=== PATIENT | female | born 1955 | race Caucasian/White ===

== ENCOUNTER 2021-09-04 04:54 | Inpatient (IN) | payer MEDICARE, SELFPAY ==
[2021-09-04] VITALS (59 sets, daily range): BP systolic 80–114; BP diastolic 50–84; PULSE 71–118; RESP 14–41; TEMP 36.3–37.2; O2SAT 50–99; BMI 18.9
--- NOTE | 2021-09-04 05:11 | XRR_ITS ---
PROCEDURE INFORMATION: Exam: XR Chest Exam date and time: 09/04/2021 5:11 AM Age: 65 years old Clinical indication: Shortness of breath; Additional info: SOB TECHNIQUE: Imaging protocol: XR of the chest. Views: 1 view. COMPARISON: CR Cervical Spine AP/Lat* [id number] 09/05/2019 5:17 PM FINDINGS: Lungs: There is prominent left upper lobe pulmonary consolidation consistent with a pneumonia. The right lung is clear. Pleural spaces: Unremarkable. No pleural effusion. No pneumothorax. Heart/Mediastinum: Unremarkable. No cardiomegaly. Bones/joints: Unremarkable. XR/XR chest 1V portable [id number] IMPRESSION: Left upper lobe pneumonia. Radiation Dose CTDIVOL = (mGy): DLP = (mGy-cm)
--- NOTE | 2021-09-04 05:12 | ECG_ITS ---
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 Measurements Intervals [place] Rate: 109 P: 95 FL: 151 QRS: 77 QRSD: 77 T: 87 QT: 330 QTc: 446 Interpretive Statements SINUS TACHYCARDIA POSSIBLE RIGHT ATRIAL ENLARGEMENT [0.25mV P-WAVE] POSSIBLE LEFT ATRIAL ENLARGEMENT [-0.1mV P-WAVE IN V1/V2] NONSPECIFIC ST & T-WAVE ABNORMALITY ABNORMAL RHYTHM ECG No previous ECG available for comparison Electronically Signed On 09-04-2021 21:55:19 DIRECTOR OF MEDICAL SERVICES by Edgar Delgado M.D. [id number]
[2021-09-04 05:26] LABS: Hematocrit 40.7 % (37.0-47.0); Hemoglobin 13.5 g/dL (11.5-15.3); Mean Corpuscular HGB Conc 33.2 g/dL (30.0-36.0); Mean Corpuscular Hemoglobin 31.7 pg (28.0-34.0); Mean Corpuscular Volume 95.5 fl (81-99); Mean Platelet Volume 12.1 fL (7.4-10.4); Platelet Count 169 10^3/cmm (130-400); Red Blood Count 4.26 10^6/uL (4.1-5.3); White Blood Count 5.4 10^3/uL (4.0-10.0)
--- NOTE | 2021-09-04 05:39 | ED_ITS ---
HPI - SOB/Dyspnea General: Chief Complaint: Shortness of Breath/Dyspnea Stated Complaint: SOB/ CHEST PAIN Time Seen by Provider: 09/04/21 04:58 History of Present Illness: MD elicited complaint: shortness of breath, cough and pain with inspiration Pertinent past history: COPD Onset (ago): day(s) Timing: intermittent and progressively worsening Severity: moderate Exacerbating factors: lying flat, exertion, coughing, inspiration and deep breaths Relieving factors: oxygen, bronchodilators and medication Associated symptoms: Reports cough, dizziness, syncope and vomiting; Deny fever(s), nausea or orthopnea Treatment prior to arrival: oxygen and nitroglycerin Review of Systems Const: Denies: fever(s) Card: Reports: syncope; Denies: orthopnea GI: Reports: vomiting; Denies: nausea Neuro: Reports: dizziness Physical Exam Const: GENERAL APPEARANCE: cooperative, in distress, ill appearing, frail appearing and appears older than stated age NUTRITIONAL APPEARANCE: cachectic ORIENTATION/CONSCIOUSNESS: Yes awake, Yes oriented to person and Yes oriented to place HENMT: COMMON NORMALS: normocephalic and Normal external nose present HEAD & SCALP: normocephalic FACE & SINUS: normal facial exam NOSE: Normal external nose present and Normal nares present Chest: Breast/axilla inspection: Yes no chest deformity, asymmetry, normal contours, no nodules, masses, tenderness Resp: EFFORT & INSPECTION: Yes tachypneic, Yes respiratory distress and Yes labored AUSCULTATION: rhonchi GI: COMMON NORMALS: Normal to inspection, nondistended, normoactive bowel sounds present and Soft to palpation PALPATION: Yes Soft to palpation Neuro: SENSORIUM/ORIENTATION: Yes oriented to person and Yes oriented to place Course Vital Signs: Vital signs: Vital Signs Temperature 98 F 09/04/21 04:55 Pulse Rate 112 H 09/04/21 05:49 Respiratory Rate 30 H 09/04/21 05:49 Blood Pressure 109/76 09/04/21 05:49 Pulse Oximetry 96 09/04/21 05:49 MDM - SOB/Dyspnea MDM Narrative: Medical decision making narrative: Dense left upper lobe pneumonia on chest x-ray. White blood cell count is only 5.4. Bicarbonate level 19. Her lactic acid is significantly elevated at 4.9. On arrival, she was found to be hypoxic despite nasal cannula oxygenation, and was placed on BiPAP. She is breathing much better. Initial blood gas shows a pH of 7.27, PCO2 49, PO2 of 240. This was after about 5 minutes to 10 minutes of BiPAP oxygenation. She was hypotensive on arrival, and tachycardic. Blood pressure has improved with fluid bolus. She received a sepsis bolus. D-dimer is significantly elevated. CTA of the chest has been ordered. Rocephin and Zithromax have been given post blood cultures. She will go to the ICU following CTA. Lab Data: Labs: Lab Results 09/04/21 09/04/21 09/04/21 05:16 05:16 05:16 WBC 5.4 10^3/uL 10^3/ uL (4.0-10.0) RBC 4.26 10^6/uL 10^6 /uL (4.1-5.3) Hgb 13.5 g/dL g/dL (11.5-15.3) Hct 40.7 % % (37.0-47.0) MCV 95.5 fl fl (81-99) MCH 31.7 pg pg (28.0-34.0) MCHC 33.2 g/dL g/dL (30.0-36.0) RDW 12.0 % L % (12.1-15.1) Plt Count 169 10^3/cmm 10^3 /cmm (130-400) MPV 12.1 fL H fL (7.4-10.4) Lymph % (Auto) Not Reportable [place] % (Auto) Not Reportable Lymph # (Auto) Not Reportable [place] # (Auto) Not Reportable Total Counted 100 (0-100) Atypical Lymphs % 0.0 % % (0-5) Absolute Neutrophi ls 3.7 10^3/cmm 10^3 /cmm (1.4-6.5) Segmented Neutroph ils 31 % % Abs Segm Neuts (Ma n) 1.7 10/cmm 10/cmm (1.6-7.1) Band Neutrophils 37.0 % % Abs Band Neuts (Ma n) 2.0 10^3/cmm H 10 ^3/cmm (0.0-1.2) Absolute Lymphocyt es 1.0 10^3/cmm L 10 ^3/cmm (1.2-3.4) Lymphocytes (Manua l) 19 % % Monocytes (Manual) 9.0 % % Absolute Monocytes 0.5 10^3/cmm 10^3 /cmm (0.1-0.6) Eosinophils (Manua l) 0 % % Absolute Eosinophi ls 0.0 10^3/cmm 10^3 /cmm (0.0-0.7) Basophils (Manual) 0.0 % % Absolute Basophils 0.0 10^3/cmm 10^3 /cmm (0.0-0.2) Metamyelocytes 4.0 % % Platelet Estimate Normal (Normal) PT 16.00 SECONDS H S ECONDS (12.1-14.9) INR 1.24 H (0.8-1.2) D-Dimer 1.83 ug/mIFEU H u g/mIFEU (0-0.59) Specimen Type Sample Site ABG pH ABG pCO2 ABG pO2 ABG HCO3 ABG Base Excess Solomon Test Hematocrit Hgb O2 Saturation Carboxyhemoglobin Methemoglobin Total Hemoglobin O2 Delivery Device FiO2 Director Of Strategic Sales ID Sodium 133 mmol/L L mmol /L (136-145) Potassium 3.8 mmol/L mmol/L (3.5-5.1) Chloride 98 mmol/L mmol/L (98-107) Carbon Dioxide 19 mmol/L L mmol/ L (22-29) Anion Gap 19.8 H (5-19) BUN 23 mg/dL mg/dL (8-23) Creatinine 1.0 mg/dL H mg/dL (0.5-0.9) GFR Calculation 56.0 mL/min L mL/ min (90-130) Glucose 111 mg/dL mg/dL (65-115) Calculated Osmolal ity 280 mOsm/kg L mOs m/kg (285-295) Lactic Acid Calcium 8.5 mg/dL mg/dL (8.5-10.5) Total Bilirubin 0.8 mg/dL mg/dL (0.15-1.2) AST 19 U/L U/L (0-32) ALT 12 U/L U/L (0-33) Alkaline Phosphata se 73 IU/L IU/L (35-105) Troponin T Baselin e C-Reactive Protein 173.2 mg/L H mg/L (0.0-4.9) NT-Pro-B Natriuret Pep 4440 pg/mL H pg/m L (0-125) Total Protein 5.1 g/dL L g/dL (6.6-8.7) Albumin 3.1 g/dL L g/dL (3.5-5.2) Globulin 2.0 g/dL g/dL (1.3-4.6) Procalcitonin 7.05 ng/mL H ng/m L (0-0.5) Influenza Type A A g Influenza Type B A g SARS-CoV-2 Ag (Rap id) 09/04/21 09/04/21 09/04/21 05:16 05:30 05:30 WBC RBC Hgb Hct MCV MCH MCHC RDW Plt Count MPV Lymph % (Auto) [place] % (Auto) Lymph # (Auto) [place] # (Auto) Total Counted Atypical Lymphs % Absolute Neutrophi ls Segmented Neutroph ils Abs Segm Neuts (Ma n) Band Neutrophils Abs Band Neuts (Ma n) Absolute Lymphocyt es Lymphocytes (Manua l) Monocytes (Manual) Absolute Monocytes Eosinophils (Manua l) Absolute Eosinophi ls Basophils (Manual) Absolute Basophils Metamyelocytes Platelet Estimate PT INR D-Dimer Specimen Type Sample Site ABG pH ABG pCO2 ABG pO2 ABG HCO3 ABG Base Excess Solomon Test Hematocrit Hgb O2 Saturation Carboxyhemoglobin Methemoglobin Total Hemoglobin O2 Delivery Device FiO2 Director Of Strategic Sales ID Sodium Potassium Chloride Carbon Dioxide Anion Gap BUN Creatinine GFR Calculation Glucose Calculated Osmolal ity Lactic Acid 4.9 mmol/L H* mmo l/L (0.5-2.2) Calcium Total Bilirubin AST ALT Alkaline Phosphata se Troponin T Baselin e 10 ng/L ng/L (0-10) C-Reactive Protein NT-Pro-B Natriuret Pep Total Protein Albumin Globulin Procalcitonin Influenza Type A A g Negative (Negative) Influenza Type B A g Negative (Negative) SARS-CoV-2 Ag (Rap id) 09/04/21 09/04/21 05:30 05:39 WBC RBC Hgb Hct MCV MCH MCHC RDW Plt Count MPV Lymph % (Auto) [place] % (Auto) Lymph # (Auto) [place] # (Auto) Total Counted Atypical Lymphs % Absolute Neutrophi ls Segmented Neutroph ils Abs Segm Neuts (Ma n) Band Neutrophils Abs Band Neuts (Ma n) Absolute Lymphocyt es Lymphocytes (Manua l) Monocytes (Manual) Absolute Monocytes Eosinophils (Manua l) Absolute Eosinophi ls Basophils (Manual) Absolute Basophils Metamyelocytes Platelet Estimate PT INR D-Dimer Specimen Type Arterial Sample Site Radial, left ABG pH 7.27 L (7.35-7.45) ABG pCO2 49.2 mmHg H mmHg (35-45) ABG pO2 240.0 mmHg H mmHg (80.0-100.0) ABG HCO3 22.7 mmol/L mmol/ L (22-26) ABG Base Excess -4.5 mmol/L L mmo l/L (-2.0-2.0) Solomon Test Pos Hematocrit 45.0 % % (37-47) Hgb O2 Saturation 97.0 % % (95-100) Carboxyhemoglobin 1.9 %THgb %THgb (0.4-20.1) Methemoglobin 0.9 % % (0.4-1.5) Total Hemoglobin 14.7 g/dL g/dL (12-16) O2 Delivery Device Bipap FiO2 80.0 % % Director Of Strategic Sales ID Tamma Sodium Potassium Chloride Carbon Dioxide Anion Gap BUN Creatinine GFR Calculation Glucose Calculated Osmolal ity Lactic Acid Calcium Total Bilirubin AST ALT Alkaline Phosphata se Troponin T Baselin e C-Reactive Protein NT-Pro-B Natriuret Pep Total Protein Albumin Globulin Procalcitonin Influenza Type A A g Influenza Type B A g SARS-CoV-2 Ag (Rap id) Negative (Negative) Critical Care Time Critical Care Time: Critical Care Time: Yes Total Critical Care Time: 35 Attestation: This case had a high probability of a clinically significant, sudden, or life threatening deterioration of this patient's condition which required my full and direct attention, intervention and personal management. Discharge Plan Discharge Patient Disposition: Admitted As Inpatient Clinical Impression: Community acquired pneumonia Qualifiers: Laterality: left Lung location: upper lobe of lung Qualified Code(s): J18.9 - Pneumonia, unspecified organism Respiratory failure Qualifiers: Chronicity: acute Respiratory failure complication: hypoxia and hypercapnia Qualified Code(s): J96.01 - Acute respiratory failure with hypoxia Condition: Serious Coding Level of Care Code ED Correspondence Coordinator for [facility] Fwd Exam Expanded Problem Focused
[2021-09-04 05:41] LABS: ABG PCO2 49.2 mmHg (35-45); ABG PH Result 7.27 (7.35-7.45); Base Excess ABG -4.5 mmol/L (-2.0-2.0); Blood Gas Allen Test Pos; Blood Gas Sample Site Radial, left; Blood Gas Sample Type Arterial; Carboxyhemoglobin 1.9 %THgb (0.4-20.1); HCO3 ABG 22.7 mmol/L (22-26); Methemoglobin 0.9 % (0.4-1.5); Oxygen Device BIPAP; Total Hemoglobin 14.7 g/dL (12-16)
[2021-09-04 05:43] LABS: INR 1.24 (0.8-1.2)
[2021-09-04] MEDS: sodium chloride 0.9% 1,000 ML 999 ML IV (05:45)
[2021-09-04 05:46] LABS: D Dimer 1.83 ug/mIFEU (0-0.59)
[2021-09-04 05:49] LABS: Troponin(5th) Baseline 10 ng/L (0-10)
[2021-09-04 05:56] LABS: NT Pro B Type Natriuretic Pept 4440 pg/mL (0-125); Procalcitonin 7.05 ng/mL (0-0.5)
[2021-09-04 06:07] LABS: Alanine Aminotransferase 12 U/L (0-33); Albumin Level 3.1 g/dL (3.5-5.2); Alkaline Phosphatase 73 IU/L (35-105); Anion Gap 19.8 (5-19); Aspartate Amino Transferase 19 U/L (0-32); Blood Urea Nitrogen 23 mg/dL (8-23); C Reactive Protein 173.2 mg/L (0.0-4.9); Calcium 8.5 mg/dL (8.5-10.5); Carbon Dioxide 19 mmol/L (22-29); Chloride 98 mmol/L (98-107); Creatinine Clr Calc Pharmacy 40.8146; Glucose 111 mg/dL (65-115); Osmolality Calculated 280 mOsm/kg (285-295); Potassium 3.8 mmol/L (3.5-5.1); Sodium 133 mmol/L (136-145); Total Bilirubin 0.8 mg/dL (0.15-1.2); Total Protein 5.1 g/dL (6.6-8.7)
[2021-09-04 06:19] LABS: Influenza A by IFA Negative (Negative); Influenza B by IFA Negative (Negative); SARS Covid-2 Antigen Negative (Negative)
[2021-09-04 06:22] LABS: Slide Review Slide Review Perform
[2021-09-04 06:25] LABS: Lactic Sepsis W/Reflex 4.9 mmol/L (0.5-2.2)
[2021-09-04 06:25] LABS: Absolute Segmented Neutrophil 1.7 10/cmm (1.6-7.1); Lymphocytes 19 %; Monocytes Absolute 0.5 10^3/cmm (0.1-0.6); Segmented Neutrophils 31 %; Total Cells Counted 100 (0-100)
[2021-09-04 06:26] LABS: Absolute Neutrophil 3.7 10^3/cmm (1.4-6.5); Eosinophils 0 %; Platelet Estimate Normal (Normal)
[2021-09-04] MEDS: azithromycin 500 MG in sodium chloride 0.9% 250 ML 250 MG IV (06:35)
[2021-09-04] MEDS: cefTRIAXone 1,000 MG in sodium chloride 0.9% (plus) 50 ML 100 MG IV (06:35)
--- NOTE | 2021-09-04 06:40 | CTR_ITS ---
PROCEDURE INFORMATION: Exam: CTA Chest With Contrast Exam date and time: 09/04/2021 6:40 AM Age: 65 years old Clinical indication: Shortness of breath; Additional info: Hypoxia, chest pain TECHNIQUE: Imaging protocol: Computed tomographic angiography of the chest with contrast. 3D rendering (Not supervised by radiologist): MIP and/or 3D reconstructed images were created by the technologist. Radiation optimization: All CT scans at this facility use at least one of these dose optimization techniques: automated exposure control; mA and/or kV adjustment per patient size (includes targeted exams where dose is matched to clinical indication); or iterative reconstruction. Contrast material: OMNI 350; Contrast volume: 75 ml; Contrast route: INTRAVENOUS (IV); COMPARISON: CR (CHEST, ) 09/04/2021 10:27 AM RADIATION DOSE METRICS: Total DLP (mGy-cm): 948.4 FINDINGS: Tubes, catheters and devices: An endotracheal tube and nasogastric tube are present in satisfactory position. Pulmonary arteries: Normal. No pulmonary emboli. Aorta: There is atherosclerotic calcification of the thoracic aorta but there is no aneurysm or dissection. Lungs: There is prominent bilateral bullous emphysema. There is prominent extensive consolidation throughout the left lung consistent with an acute pneumonia. There is left lower lobe atelectasis. Pleural spaces: Unremarkable. No pneumothorax. No pleural effusion. Heart: The heart is not enlarged. Lymph nodes: Unremarkable. No enlarged lymph nodes. Bones/joints: Mild degenerative changes are present in the spine. No acute bony abnormality. Soft tissues: Unremarkable. CT/CT angio chest PE protcl [id number] IMPRESSION: 1. No evidence of pulmonary embolus or aortic aneurysm/dissection. 2. Bullous emphysema. 3. Prominent left lung pneumonia especially in the upper lobe. Left lower lobe atelectasis. Radiation Dose CTDIVOL = (mGy): DLP = 948.4 (mGy-cm)
--- NOTE | 2021-09-04 07:12 | ECG_ITS ---
[facility] Test Date: 2021-09-04 Pat Name: Sandra Adams Department: Room: 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 Measurements Intervals [place] Rate: 103 P: 95 [place]: 140 QRS: 70 QRSD: 86 T: 68 QT: 316 QTc: 415 Interpretive Statements SINUS TACHYCARDIA NONSPECIFIC T-WAVE ABNORMALITY Compared to ECG 09/04/2021 05:34:38 No significant changes Electronically Signed On 09-04-2021 21:58:58 RESIDENT INTERN by Edgar Delgado M.D. [id number]
[2021-09-04 07:16] LABS: Reflex Lactate Order REFLEX LACTIC ORDERD
--- NOTE | 2021-09-04 07:24 | P.HP_ITS ---
Providers/Chief Complaint Chief Complaint: SOB/ CHEST PAIN History of Present Illness Sandra Adams is a 65 year old female who presented to the ER department for worsening shortness of breath. Patient is not able to provide any history. I called her significant other Mr. Patel, he was able to tell me that 2 years ago she was at [facility] where a spot was detected on her left lung and no investigation was done afterwards, she smokes 1 pack/day for last 20-25 years, she has been losing weight, she does carry history of COPD, for last few weeks she was getting short of breath which worsened in last 2 days and significant other called ambulance last night when she was extremely short of breath. Patient is vaccinated for COVID-19 with both doses. No fever nausea, vomiting at home. I was called by the ER physician around 7:30 AM that patient needs ICU bed and she is currently on BiPAP, I requested another blood gas it did look worsened as compared to 5:30 AM blood gas, decision was made to intubate, significant other, brother Abhishek [phone], daughter Geraldine [phone] notified, they were notified about current diagnosis, indication for intubation and risk of cardiac arrest involved with the procedure, her blood pressure was low 80s, decision was made to start Levophed before intubation, fentanyl for sedation will be used, CT scan has been requested by the ER physician secondary to high D-dimer and tachycardia Review of Systems General: Reports: ROS unobtainable due to endotracheal tube and ROS unobtainable due to medical condition Medications/Allergies Home Medications Medication Instructions Recorded Confirmed Last Taken Type albuterol sulfate 2 puff INHALATION Q6H PRN 09/04/21 09/04/21 Unknown History escitalopram oxalate 20 mg PO DAILY 09/04/21 09/04/21 Unknown History famotidine 20 mg PO BID 09/04/21 09/04/21 Unknown History fxdsqchbzxg-qdmeskvhm-dgytfjqi 1 inh INHALATION BID 09/04/21 09/04/21 Unknown History [Trelegy Ellipta] gabapentin 100 mg PO TID 09/04/21 09/04/21 Unknown History levothyroxine 75 mcg PO DAILY 09/04/21 09/04/21 Unknown History omeprazole 40 mg PO DAILY 09/04/21 09/04/21 Unknown History simvastatin 40 mg PO DAILY 09/04/21 09/04/21 Unknown History Allergies Allergy/AdvReac Type Severity Reaction Status Date / Time codeine Allergy ADR-Nausea Verified 09/04/21 05:12 PFSH Acute PFSH: Medical History COPD (chronic obstructive pulmonary disease) Vaginal cancer Surgical History H/O colposcopy with cervical biopsy Hx of cholecystectomy Family History Denies family history of Clotting disorder Chronic kidney disease (CKD) Social History Smoking and tobacco status: current every day smoker cigarettes [ Other cigarette details: Smokes 1 pack/day for last 20 to 25 years ] Alcohol intake: never Substance/Drug Use: never Household members: significant other Housing: House Vitals/I&O/Wt Last Vital Signs Temp 98 F 09/04/21 04:55 Pulse 112 H 09/04/21 05:49 Resp 30 H 09/04/21 05:49 BP 109/76 09/04/21 05:49 Pulse Ox 96 09/04/21 05:49 09/03/21 09/04/21 09/04/21 23:59 06:59 14:59 Intake Total Balance Weight last 48 hrs Weight 43.998 kg Physical Exam Narrative: EXAM NARRATIVE: Patient was on BiPAP when I entered the room She was very agitated respiratory rate in 34-36 range Systolic blood pressure in low 80s Decision was made to quickly intubate after vasopressors and transfer her to ER room 10 for intubation Tachypneic Bilateral diminished breath sounds Assisted breath sounds Abdomen is soft Cachectic malnourished appearance Red to pink secretions all over her chest and some noticed in the BiPAP tubing Clinically does not look fluid overloaded S1, S2 sinus tachycardia Patient is very agitated able to open her eyes on command No strokelike features noticed No digital clubbing Data : 09/04/21 05:16 09/04/21 05:16 Micro: Microbiology 09/04/21 05:30 Blood Culture - Preliminary Blood SPECIMEN COLLECTED 09/04/21 05:30 Blood Culture - Preliminary Blood SPECIMEN COLLECTED A&P Assessment and plan (1) Community acquired pneumonia: Status: Acute Qualifiers: Laterality: left Lung location: upper lobe of lung Qualified Code(s): J18.9 - Pneumonia, unspecified organism (2) Respiratory failure: Status: Acute Qualifiers: Chronicity: acute Respiratory failure complication: hypoxia and hypercapnia Qualified Code(s): J96.01 - Acute respiratory failure with hypoxia; J96.02 - Acute respiratory failure with hypercapnia (3) Sepsis: Status: Acute (4) Metabolic acidosis: Status: Acute (5) Acute kidney injury: Status: Acute (6) COPD (chronic obstructive pulmonary disease): Status: Acute (7) Acute respiratory failure with hypoxia and hypercapnia: Status: Acute (8) Septic shock: Status: Acute (9) Malnourished: Status: Acute (10) Cachexia: Status: Acute Additional A&P Information septic shock due to CAP Respiratory failure requiring mechanical ventilator Acute hypoxic hypercapnic resp failure Meet sepsis criteria will cover her with broad-spectrum antibiotics for pneumonia Lactic acid high sepsis criteria met with tachypnea, tachycardia high lactic acid, MANINDER Septic shock: Requiring Levophed added bicarb for met acidosis vasopressin added by interactive media specialist ADded linezolid and zosyn, sputum culture concern for MRSA, get MRSA pcr Added IV Steroids check tsh, cortisol level We will use endotracheal tube size 8 for bronchoscopy, will consult systems management consultant Ting every 4hr, Requested blood culture, sputum culture, Procalcitonin For sedation will use fentanyl avoid propofol because of hypotension Continue Levophed judicious use of fluids clinically she does not look fluid overloaded BNP is high, PE has not been ruled out we will keep her on low rate of maintenance fluid normal saline She carries history of COPD, 2 years ago as per the family there was a spot detected on her left side of her lung no work-up since then, will request records from [facility] Start tube feeding 24 hours after intubation Family updated Crystal: Daughter [phone], brother Abhishek: [phone] Full code Tube feeding diet Poor prognosis: My concerns were conveyed to the family, all of their questions were answered to their satisfaction, high risk intubation Attestations Medical Necessity Statement*: More than 2 midnights required Time Spent in Patient Care: Greater than 35 minutes Coding Level of Care Code Acute Credit And Loan Collections Supervisor for Chg Fwd Diagnoses Community acquired pneumonia J18.9 Laterality: left Lung location: upper lobe of lung Respiratory failure J96.01; J96.02 Chronicity: acute Respiratory failure complication: hypoxia and hypercapnia Sepsis A41.9 Metabolic acidosis E87.2 Acute kidney injury N17.9 COPD (chronic obstructive pulmonary disease) J44.9 Acute respiratory failure with hypoxia and hypercapnia J96.01; J96.02 Septic shock A41.9; R65.21 Malnourished E46 Cachexia R64
[2021-09-04 08:26] LABS: Lactic Acid level (Lactate) 3.9 mmol/L (0.5-2.2)
[2021-09-04 08:27] LABS: Troponin 5 2HR 10.81 ng/L (0-10); Troponin 5 2HR Delta 0.81 ABS# (0-10)
[2021-09-04 08:45] LABS: Arterial Blood Gas Hematocrit 43.4 % (37-47); Blood Gas Sample Type Arterial; Carboxyhemoglobin 1.4 %THgb (0.4-20.1); HGB O2 Sat 81.5 % (95-100); Ionized Calcium Level - ABG 1.2 mmol/L (1.1-1.4); Methemoglobin 0.4 % (0.4-1.5); PO2 ABG 55.4 mmHg (80.0-100.0); Potassium Level - ABG 3.1 mmol/L (3.5-5.0); Total Hemoglobin 14.2 g/dL (12-16)
[2021-09-04 08:47] LABS: Alveolar-Arterial Oxygen Gradi 24.9 mmHg (5-10); Blood Gas Operator Identificat ED; Blood Gas Sample Site Brachial, right; Oxygen Device BIPAP
[2021-09-04 08:49] LABS: ABG PCO2 64.3 mmHg (35-45); ABG PH Result 7.14 (7.35-7.45); Blood Gas Drawn By ED
[2021-09-04] MEDS: rocuronium 10 mg/mL INJ 5mL 60 MG IVP (09:06)
[2021-09-04] MEDS: propofol 1,000 MG/100 ML INJ 1.32 MG IV (09:12)
--- NOTE | 2021-09-04 09:14 | XRR_ITS ---
PROCEDURE INFORMATION: Exam: XR Chest Exam date and time: 09/04/2021 9:14 AM Age: 65 years old Clinical indication: Device placement; Other: Ett and ng placement; Additional info: Post intubation TECHNIQUE: Imaging protocol: XR of the chest. Views: 1 view. COMPARISON: CR (CHEST, ) 09/04/2021 6:34 AM FINDINGS: Tubes, catheters and devices: An endotracheal tube is present with its tip 4 cm above the gregoria. A nasogastric tube extends down to the stomach. Lungs: There is worsening consolidation of the left lung. The right lung remains clear. Pleural spaces: Unremarkable. No pleural effusion. No pneumothorax. Heart/Mediastinum: Unremarkable. No cardiomegaly. Bones/joints: Unremarkable. XR/XR chest 1V portable [id number] IMPRESSION: 1. Satisfactory position of the endotracheal tube and nasogastric tube. 2. Worsening left lung pneumonia. Radiation Dose CTDIVOL = (mGy): DLP = (mGy-cm)
--- NOTE | 2021-09-04 09:25 | PC.PHAR ---
pt unable to verify due to intubation. Spoke with Jorge, life partner, but he is unable to verify medications. Jorge stated she takes aspirin but not daily. Jorge also is unsure of allergies. Entered allergy is codeine. [facility] order service filled medications available on ext med history.
[2021-09-04 09:57] LABS: Estmated Average Glucose 105; Hemoglobin A1C 5.3 % (4.0-6.0)
[2021-09-04 10:02] LABS: Procalcitonin 12.08 ng/mL (0-0.5)
[2021-09-04] MEDS: sodium chloride 0.9% 500 ML 999 ML IV (10:15)
[2021-09-04 10:38] LABS: Arterial Blood Gas Hematocrit 42.7 % (37-47); Base Excess ABG -12.4 mmol/L (-2.0-2.0); Blood Gas Sample Type Arterial
[2021-09-04 10:39] LABS: ABG PCO2 77.7 mmHg (35-45); ABG PH Result 7.02 (7.35-7.45); Blood Gas Operator Identificat ED; Blood Gas Sample Site Brachial, left; Blood Gas Tidal Volume 0.36; Oxygen Device VENT
[2021-09-04] MEDS: iohexol 350 mg/mL 100 mL Btl IV (11:21)
[2021-09-04 11:32] LABS: Cortisol Random 42.31 ug/dL (2.47-19.5); Thyroid Stimulating Hormone 0.37 uIU/mL (0.27-4.20)
[2021-09-04] MEDS: piperacillin-tazobactam 3.375 GM in sodium chloride 0.9% (plus) 50 ML IV ×2 (12:43→21:45)
[2021-09-04 12:53] LABS: Arterial Blood Gas Hematocrit 44.6 % (37-47); Base Excess ABG -13.2 mmol/L (-2.0-2.0); Blood Gas Allen Test Pos; Blood Gas Operator Identificat BD; Blood Gas Sample Site ALINE; Blood Gas Sample Type Arterial; HCO3 ABG 18.9 mmol/L (22-26); Oxygen Device VENT; PO2 ABG 75.2 mmHg (80.0-100.0)
[2021-09-04 12:54] LABS: ABG PCO2 72.2 mmHg (35-45); ABG PH Result 7.03 (7.35-7.45)
[2021-09-04] MEDS: potassium chloride premix 100 ML 50 MEQ IV (13:03)
[2021-09-04] MEDS: phenylephrine inj 25 MG in sodium chloride 0.9% 250 ML 24.24 MG IV (13:26)
[2021-09-04 14:31] LABS: Glucose Point of Care 104 mg/dL (70-110)
[2021-09-04] MEDS: sodium chloride 0.9% 500 ML IV (14:39)
[2021-09-04] MEDS: vancomycin 500 MG in sodium chloride 0.9% (plus) 100 ML 200 MG IV (14:44)
[2021-09-04 15:13] LABS: ABG PCO2 59.7 mmHg (35-45); Alveolar-Arterial Oxygen Gradi 76.5 mmHg (5-10); Arterial Blood Gas Hematocrit 40.4 % (37-47); Blood Gas Allen Test Pos; Blood Gas Operator Identificat BD; Blood Gas Sample Site ALINE; Blood Gas Sample Type Arterial; Carboxyhemoglobin 0.5 %THgb (0.4-20.1); HGB O2 Sat 85.8 % (95-100); Ionized Calcium Level - ABG 1.1 mmol/L (1.1-1.4); Methemoglobin 0.9 % (0.4-1.5); Oxygen Device VENT; PO2 ABG 58.2 mmHg (80.0-100.0); Potassium Level - ABG 3.5 mmol/L (3.5-5.0); Total Hemoglobin 13.2 g/dL (12-16)
[2021-09-04 15:14] LABS: ABG PH Result 7.04 (7.35-7.45)
[2021-09-04] MEDS: sodium bicarbonate 8.4% 1 mEq/mL 50mL Syr 100 MEQ IVP (15:36)
[2021-09-04] MEDS: hydrocortisone 100 mg/2 mL SDV 50 MG IVP ×2 (15:36→21:45)
--- NOTE | 2021-09-04 15:50 | P.CONIM_ITS ---
Providers/Reason For Consult Consulting Physician/Specialty*: Pulmonary critical care medicine Reason for Consult*: Acute hypoxic and hypercapnic respiratory failure, septic shock with multilobar pneumonia Attending Physician: Lan Coleman MD History of Present Illness History of Present Illness Sandra Adams is a 65 year old female with a past medical history of COPD on triple inhaler therapy, emphysema. The patient does not have any of her history in our system. Based on her medication list the patient has depression, possible neuropathic pain, hypothyroidism, GERD and hyperlipidemia. The patient was intubated when I evaluated her. The history was obtained from medical records. The patient presented to the emergency department early this morning with worsening shortness of breath. She was not able to provide any history. The history was obtained from her partner. The patient is an active smoker and smokes a pack a day. Apparently her respiratory status has been worsening for the past week or so and in the past 2 days it had gotten extremely bad. The patient had been vaccinated for COVID-19. I have reviewed the patient's blood work and radiologic data. The initial arterial blood gas is consistent with acute hypoxic and hypercapnic respiratory failure. Chest x-ray at that time revealed infiltrate in the left upper and midlung zone. Based on the initial blood gas the patient does not have hypercapnia at baseline. The subsequent arterial blood gases revealed worsening hypercapnic respiratory failure. The patient was eventually intubated however despite intubation and mechanical ventilation she continued to have worsening hypercapnia. The patient had a CT angiogram which did not reveal any pulmonary embolism. The patient has infiltrate in the left upper and lower lobes. There is also volume loss with atelectasis in the left lower lobe. Apparently, a couple of years ago the patient was found to have a left upper lobe lung nodule. What intervention was performed for this is unclear. When I evaluated the patient, the patient was hypotensive. An accurate blood pressure could not be obtained from the noninvasive blood pressure measurement. The A-line did not give proper waveform. The patient initially had lactic acidosis. I had put in a left femoral arterial line. Her systolic blood pressure was in the 90s. The patient was on 20 mcg of Levophed. There was respiratory pulse pressure variation. The patient was given IV fluid with improvement of her blood pressure and tachycardia. A bedside ultrasound revealed good RV function. The TAPSE was normal. There was no evidence of pulmonary embolism. The left ventricular function appeared mildly reduced. The IVC was not dilated. Ventilator changes were made with increased tidal volume. There was no evidence of air trapping or auto PEEP. The patient had a minute ventilation of approximately 10 L. The subsequent blood gas revealed improvement of the PCO2 to 60 from nearly 80. However the pH remained 7. The patient has metabolic acidosis in addition to respiratory acidosis. Currently she is broadly covered with vancomycin, azithromycin and Zosyn. The endotracheal aspirate Gram stain revealed gram-positive cocci in chains and clusters. Review of Systems Narrative: Unable to assess Meds/Allergies Home Medications and Allergies Home Medications Medication Instructions Recorded Confirmed Last Taken Type albuterol sulfate 2 puff INHALATION Q6H PRN 09/04/21 09/04/21 Unknown History escitalopram oxalate 20 mg PO DAILY 09/04/21 09/04/21 Unknown History famotidine 20 mg PO BID 09/04/21 09/04/21 Unknown History mndhhtoefus-uzgpxwube-gmobelec 1 inh INHALATION BID 09/04/21 09/04/21 Unknown History [Trelegy Ellipta] gabapentin 100 mg PO TID 09/04/21 09/04/21 Unknown History levothyroxine 75 mcg PO DAILY 09/04/21 09/04/21 Unknown History omeprazole 40 mg PO DAILY 09/04/21 09/04/21 Unknown History simvastatin 40 mg PO DAILY 09/04/21 09/04/21 Unknown History Allergies Allergy/AdvReac Type Severity Reaction Status Date / Time codeine Allergy ADR-Nausea Verified 09/04/21 05:12 Current Medications Current Medications Generic Name Dose Route Start Last Admin Trade Name Freq PRN Reason Stop Dose Admin Enoxaparin Sodium 40 mg 09/04/21 11:52 09/04/21 13:27 Enoxaparin 40 Mg/0.4 Ml Syringe SUBCUT Not Given Q12H RUSS Hydrocortisone Sodium Succinate 50 mg 09/04/21 15:30 09/04/21 15:36 Hydrocortisone 100 Mg/2 Ml Sdv IVP 50 mg Q6H RUSS Administration Propofol 1,000 mg in 100 mls @ 0 mls/hr 09/04/21 08:45 09/04/21 09:40 Diprivan IV 0 mcg/kg/min .Q0M RUSS 0 mls/hr Titration Protocol Per Protocol Norepinephrine Bitartrate 4 mg 254 mls @ 0 mls/hr 09/04/21 08:45 09/04/21 14:14 / Dextrose IV 18 mcg/min .Q0M RUSS 68.58 mls/hr Titration Protocol Per Protocol Fentanyl 1,000 mcg/ Sodium 100 mls @ 0 mls/hr 09/04/21 08:45 09/04/21 15:00 Chloride IV 75 mcg/hr .Q0M RUSS 7.5 mls/hr Titration Protocol Per Protocol Vancomycin HCl 500 mg/ Sodium 100 mls @ 200 mls/hr 09/04/21 12:30 09/04/21 14:44 Chloride IV 200 mls/hr Q24H RUSS Administration Piperacillin Sod/Tazobactam 50 mls @ 12.5 mls/hr 09/04/21 13:30 09/04/21 12:43 Sod 3.375 gm/ Sodium Chloride IV 12.5 mls/hr Q8H RUSS Administration Senna/Docusate Sodium 1 tab 09/04/21 11:52 09/04/21 13:26 Sennosides-Docusate Tablet PO Not Given DAILY RUSS PFSH Acute PFSH: Medical History COPD (chronic obstructive pulmonary disease) Vaginal cancer Surgical History H/O colposcopy with cervical biopsy Family History Denies family history of Clotting disorder Chronic kidney disease (CKD) Social History Smoking and tobacco status: current every day smoker cigarettes [ Other cigarette details: Smokes 1 pack/day for last 20 to 25 years ] Alcohol intake: never Substance/Drug Use: never Household members: significant other Housing: House Vitals/I&O/Wt Last Vital Signs Temp 97.4 F L 09/04/21 14:00 Pulse 107 H 09/04/21 14:00 Resp 20 H 09/04/21 10:47 BP 114/84 09/04/21 10:58 Pulse Ox 97 09/04/21 14:00 09/04/21 09/04/21 09/04/21 06:59 14:59 22:59 Intake Total 1209.620 / 1209.620 2.5 / 1212.120 Balance 1209.620 / 1209.620 2.5 / 1212.120 Weight last 48 hrs Weight 102 lb 8 oz Weight 97 lb Physical Exam Narrative: EXAM NARRATIVE: General: The patient is intubated and sedated Neck: No JVD Respiratory: Auscultation: Diffuse crackles at left lung, reduced breath sound in the right lung, no wheezing or rhonchi Cardiovascular: Tachycardia, regular rhythm, S1-S2 present, distant heart sound, no murmur, no peripheral edema. Abdomen: Soft, nondistended, positive bowel sound Skin: No rash Neuro: Unable to assess Urinary Catheter Management^: Valenzuela: Cath Placed During This Visit: yes Urinary Catheter Date of Insertion: 09/04/21 Urinary Catheter Time of Insertion: 11:00 Data Micro: Micro: Microbiology 09/04/21 09:15 Gram Stain - Final Sputum - Endotrac heal Tube Aspirate 09/04/21 05:30 Blood Culture - Pr eliminary Blood SPECIMEN COLLEC YASMANY 09/04/21 05:30 Blood Culture - Pr eliminary Blood SPECIMEN COLLE YASMANY Other Data: Attestation for Other Data: I personally reviewed and interpreted the following: Other data: I have reviewed the patient's laboratory, microbiologic and radiologic data. Please see the HPI for detail. A&P Assessment and plan (1) Septic shock: The patient is in septic shock secondary to multilobar pneumonia. She is currently on Levophed. I am starting her on vasopressin. The efficacy of the vasopressors is likely reduced due to severe acidosis. The patient is going to receive 2 A of bicarb push followed by a bicarb drip. The acidosis is secondary to respiratory acidosis, lactic acidosis and likely acidosis secondary to acute kidney injury. The patient is on hydrocortisone. Status: Acute (2) Community acquired pneumonia: The patient has multilobar pneumonia involving the left upper and lower lobe. The endotracheal aspirate Gram stain revealed gram-positive cocci in chains and clusters. I performed a bronchoscopy with BAL from the lingular segment. We will follow up with the Gram stain culture and fungal stain and culture. For the time being, the patient will be broadly covered with anti-MRSA, pseudomonal coverage. She is also on azithromycin. Status: Acute Qualifiers: Laterality: left Lung location: upper lobe of lung Qualified Code(s): J18.9 - Pneumonia, unspecified organism (3) Acute respiratory failure with hypoxia and hypercapnia: The patient has significant emphysema. The initial blood gases consistent with acute hypercapnic respiratory failure. The patient does not have evidence of chronic hypercapnic respiratory failure. The patient developed pneumonia and was unable to compensate given her already compromised lung function from COPD and eventually developed acute hypercapnic respiratory failure. The development of metabolic acidosis likely also precipitated respiratory failure with additional work burden. The patient is currently on volume control mechanical ventilation. Her minute ventilation is approximately 10 L. We will can make adjustments safely to increase her minute ventilation to around 12 which should reduce her PCO2 level to 40. We will also treat her for metabolic acidosis. Status: Acute (4) COPD (chronic obstructive pulmonary disease): Hydrocortisone. We will continue with DuoNeb. Since the patient is on steroid at this time I would avoid nebulized steroid which does increase the risk of pneumonia. Status: Acute (5) Acute kidney injury: The patient has had minimal urine output in the past 6 hours or so. She was hypotensive and hypoxic. The patient will likely develop acute tubular necrosis. The patient was volume depleted when I evaluated her however with ongoing drips the patient will likely be volume overloaded by tomorrow morning. I am hoping that the ATN will resolve. She will likely need big doses of Lasix. I am hoping that we will be able to avoid dialyzing her in the future. Status: Acute (6) Metabolic acidosis: This is secondary to a combination of lactic acidosis and metabolic acidosis from MANINDER. I am going to obtain a BMP, lactic acid. We will adjust the bicarb drip based on the future blood work. Status: Acute Coding Level of Care Code Acute [employer] for [facility] Fwd Diagnoses Septic shock A41.9; R65.21 Community acquired pneumonia J18.9 Laterality: left Lung location: upper lobe of lung Acute respiratory failure with hypoxia and hypercapnia J96.01; J96.02 COPD (chronic obstructive pulmonary disease) J44.9 Acute kidney injury N17.9 Metabolic acidosis E87.2 Time Spent (min) 73
--- NOTE | 2021-09-04 16:17 | P.PCN_ITS ---
Procedure/Consent Time out: Time Out Performed: Yes Consent: Consent for Procedure: Consent obtained from other (indicate) (Daughter) and Emergency procedure Procedure Narrative: Name of the procedure: Bronchoscopy with inspection of the airway, bronchoalveolar lavage, airway clearance and control of bleeding. Indication: Acute hypoxic respiratory failure in the setting of multifocal pneumonia requiring intubation and partial left lower lobe atelectasis. Medication: The patient is on intravenous fentanyl drip. Description of the procedure: Verbal consent was obtained from her daughter. The procedures was performed during emergent condition. The patient was intubated for acute hypoxic respiratory failure. 1% lidocaine 5 mL was introduced through the ET tube. The bronchoscope was as far advanced t hrough the ET tube to the gregoria was visualized. The lower trachea appeared erythematous. In a systematic manner the bilateral airways were then examined. The bronchoscope was introduced into the right mainstem bronchus. The right upper lobe, middle lobe and lower lobe bronchi were examined up to the third subsegmental level. No endobronchial lesions or mucous plug was noted. The bronchoscope was then introduced in the left mainstem bronchus. The left upper lobe, lingula and lower lobe bronchi were examined up to the third subsegmental level. No endobronchial lesion was seen. Mucus was noted in left lower lobe bronchi and was suctioned out. Bronchoalveolar lavage was performed from the inferior segment of the lingula. 50 cc of saline was introduced, fluid return was 20 mL. The fluid was pus colored. Specimen was sent for Gram stain and culture, fungal stain and culture. Complications: No immediate complication was noted. Acute Procedures Epistaxis Control: Time out performed: Yes
[2021-09-04] MEDS: enoxaparin 40 mg/0.4 mL Syringe SUBCUT (16:39)
[2021-09-04] MEDS: ipratropium-albuterol 3 mL Neb INHALATION ×2 (16:42→20:20)
--- NOTE | 2021-09-04 16:48 | PM.ACPR ---
Procedure/Consent Time out: Time Out Performed: Yes Consent: Consent for Procedure: Consent obtained from other (indicate) Additional Consent Information: DAUGHTER CRYSTAL Procedure Narrative: Due to hypotension and septic shock A line obtained Rt Radial art USG guided technque was used to visualize right radial artery, on first attempt I was able to access the art with good pulsatile flow, line secured with dry sterile dressing EBL 5ml Acute Procedures Arterial Line: Time out performed: Yes Size (Gauge): 20 Technique used: direct puncture technique Post-Procedure: dry sterile dressing placed Patient tolerated procedure: well Complications: none Site: right Epistaxis Control: Time out performed: Yes
[2021-09-04 16:50] LABS: Anion Gap 19.4 (5-19); Blood Urea Nitrogen 26 mg/dL (8-23); Calcium 6.2 mg/dL (8.5-10.5); Carbon Dioxide 16 mmol/L (22-29); Chloride 107 mmol/L (98-107); Glomerular Filtration Rate 45.4 mL/min (90-130); Glucose 111 mg/dL (65-115); Osmolality Calculated 293 mOsm/kg (285-295); Potassium 3.4 mmol/L (3.5-5.1); Sodium 139 mmol/L (136-145)
--- NOTE | 2021-09-04 16:52 | P.PCN_ITS ---
Procedure/Consent Consent: Consent for Procedure: Emergency procedure Additional Consent Information: Pt was showing mottling BP not obtainable in the ER Procedure Narrative: Indication: Septic shock Emergency procedure patient was showing signs of mottling in the ER, no family member at the bedside, they were notified over the phone, called Geraldine and brother PAUL, also called significant other Ultrasound-guided technique was used to visualize right femoral vein which was collapsible, 2 nurses were present in the ER room during the procedure to assist me, after sterile prep and dressing ultrasound probe cover was used to maintain sterile field, sterile gown, hat And gloves were used for the procedure Under ultrasound guidance right femoral vein was visualized, introducer needle was inserted, I was able to access femoral vein on second attempt, guidewire passed without any resistance, dilator introduced after a small cut, triple- lumen catheter was inserted, guidewire removed without any complications, all 3 lines were flushed, good venous return noticed from all 3 ports, line was secured with sutures, sterile block, and sterile dressing Estimated blood loss 5ml
--- NOTE | 2021-09-04 16:58 | PC.NURSE ---
1128 Pt arrived from ED via gurney, transferred to ICU bed and connected to monitors. BP upon arrival WNL. Levophed at 20mcg, fentanyl at 25mcg to R femoral CVL. ETT 23cm at lip, vent settings per RT flowsheet. Pt does not wake when care is performed. Lung sounds coarse bilaterally, diminished more to L side. Pt tachycardic. Valenzuela cath in place draining clear jersey urine to BSD. BP does not want to read. aware and at bedside to place radial art line. Art line placed but with poor waveform, Dr. Bejarano to come and place femoral art line. Dr. Bejarano at bedside to place femoral art line, line placed. Pt bronched per Darci. Sample sent to lab. Multiple ABG's drawn. Pt o2 sat difficult to obtain at times. Pt then was wide awake and bucking against vent and raised hands toward tubes. Restraint order was given and bilateral wrist restraints placed. Fentanyl increased per orders. Pt settled back down. ART line BP remains soft, so vasopressin added at 0.04 per orders. 2 amps bicarb given and bicarb drip started. VSS remain labile. O2 sat drops, BP is soft, HR is slightly tachycardic. aware. Will monitor.
--- NOTE | 2021-09-04 17:05 | PM.ACPR ---
Procedure/Consent Time out: Time Out Performed: Yes Consent: Consent for Procedure: Emergency procedure Procedure Narrative: Name of the procedure: Left femoral ultrasound-guided arterial catheter placement. Indication: Septic shock Medications: Fentanyl drip. Description of the procedure: The procedure was performed during emergency. The site was prepared using sterile technique. The left femoral artery was identified under ultrasound guidance from pulsatility. Under ultrasound guidance the introducer needle was advanced till flash back was noted. Using Seldinger technique the left radial arterial line was inserted. The catheter was secured with 2-0 silk suture and Tegaderm. Complications: None. Acute Procedures Arterial Line: Size (Gauge): 20 Epistaxis Control: Time out performed: Yes
[2021-09-04 17:07] LABS: Lactate (Lactic Acid level) 6.2 mmol/L (0.5-2.2)
[2021-09-04 17:37] LABS: ABG PCO2 54.3 mmHg (35-45); Arterial Blood Gas Hematocrit 40.3 % (37-47); Base Excess ABG -11.6 mmol/L (-2.0-2.0); Blood Gas Allen Test Pos; Blood Gas Sample Site ALINE; Blood Gas Sample Type Arterial; Carboxyhemoglobin 0.5 %THgb (0.4-20.1); HCO3 ABG 17.8 mmol/L (22-26); HGB O2 Sat 82.5 % (95-100); Ionized Calcium Level - ABG 0.9 mmol/L (1.1-1.4); Methemoglobin 0.8 % (0.4-1.5); Oxygen Saturation ABG 83.6; PO2 ABG 48.6 mmHg (80.0-100.0); Total Hemoglobin 13.1 g/dL (12-16)
[2021-09-04 17:38] LABS: ABG PH Result 7.13 (7.35-7.45); Alveolar-Arterial Oxygen Gradi 78.5 mmHg (5-10); Blood Gas Operator Identificat BD; Blood Gas Tidal Volume 0.55; Oxygen Device VENT
[2021-09-04] MEDS: linezolid premix 600 MG/300 ML PREMIX 300 MG IV (17:40)
--- NOTE | 2021-09-04 17:42 | XRR_ITS ---
PROCEDURE INFORMATION: Exam: XR Chest Exam date and time: 09/04/2021 5:42 PM Age: 65 years old Clinical indication: Dyspnea; Patient HX: PT intubated; Additional info: Low o2 sat TECHNIQUE: Imaging protocol: XR of the chest. Views: 1 view. COMPARISON: 09/04/2021 CTA of the chest and (10:27 AM) chest radiograph FINDINGS: Near-complete opacification the of the left hemithorax is noted, likely due to worsening left basilar atelectasis. A small left pleural effusion is also suspected. The right lung remains at well aerated. The ETT appears stable in position. A nasogastric tube traverses the thorax. XR/XR chest 1V portable [id number] IMPRESSION: Near-complete opacification of the left hemithorax, likely due to worsening left lower lobe atelectasis Radiation Dose CTDIVOL = (mGy): DLP = (mGy-cm)
[2021-09-04] MEDS: calcium gluconate 0.1 gm/mL 10% SDV 10mL 1 GM IVP (18:01)
[2021-09-04] MEDS: rocuronium 10 mg/mL INJ 5mL 50 MG IVP (18:01)
[2021-09-04] MEDS: heparin 5,000 unit/mL INJ 1 mL 5000 UNIT SUBCUT (18:01)
[2021-09-04] MEDS: potassium chloride premix 100 ML 25 MEQ IV (18:02)
--- NOTE | 2021-09-04 18:30 | PC.NURSE ---
Pt given rocuromium 50mgIVP and calcium gluconate IVP per Md orders. O2 sat improved at this time. Pt placed in R lung down position. BP improving slowly, levophed titrated per orders. Family aware. MD has talked to them. Will monitor.
[2021-09-04] MEDS: cefepime 2,000 MG in sodium chloride 0.9% (plus) 50 ML 100 MG IV (18:42)
[2021-09-04 18:44] LABS: Urine Creatinine 67 mg/dL (28-217); Urine Random Chloride 24 mmol/L
[2021-09-04 18:49] LABS: Urine Random Sodium 17 mmol/L
[2021-09-04 19:08] LABS: Potassium Urine Random 31.51
[2021-09-04 19:08] LABS: Creatine Phosphokinase 504 U/L (26-192)
--- NOTE | 2021-09-04 19:30 | PC.NURSE ---
Critical Lab Called Dr. Gonzales and notified him about patient CK of 504, he gave over the phone orders to start NS at 75mls/hr.
--- NOTE | 2021-09-04 20:00 | PC.NURSE ---
Spoke with Family Spoke with patient brother, Conrado on the phone and gave update on patient condition. He verbalized understanding and asked to be informed if patient condition worsened throughout the night. Nurse verbalized understanding of request.
[2021-09-04] MEDS: sodium chloride 0.9% 1,000 ML 75 ML IV (20:30)
--- NOTE | 2021-09-04 20:30 | PC.NURSE ---
Family at Bedside Patient two daughters at bedside, per Dr. Coleman approval. Both visitors informed by nurse that they must dress out in full PPE to protect themselves and updated on patients pending COVID test. Both daughters verbalized understanding of teaching.
[2021-09-04 20:35] LABS: Magnesium 1.5 mg/dL (1.7-2.3)
[2021-09-04 21:06] LABS: Glucose Point of Care 88 mg/dL (70-110)
[2021-09-04 22:33] LABS: ABG PCO2 52.4 mmHg (35-45); Arterial Blood Gas Hematocrit 44.3 % (37-47); Base Excess ABG -9.8 mmol/L (-2.0-2.0); Blood Gas Allen Test Pos; Blood Gas Sample Site Radial, right; Blood Gas Sample Type Arterial; Carboxyhemoglobin 0.3 %THgb (0.4-20.1); HGB O2 Sat 88.2 % (95-100); Methemoglobin 0.9 % (0.4-1.5); Oxygen Device VENT; PO2 ABG 57.8 mmHg (80.0-100.0); Total Hemoglobin 14.5 g/dL (12-16)
[2021-09-04 22:34] LABS: ABG PH Result 7.17 (7.35-7.45)
[2021-09-04] MEDS: sodium bicarbonate 8.4% 1 mEq/mL 50mL Syr 50 MEQ IVP (23:08)
--- NOTE | 2021-09-04 23:20 | PC.NURSE ---
BP Low BP noted to be low, informed Dr. Bejarano and he gave over the phone orders to start an Epi drip at 0.05 mcg/kg/min.
[2021-09-04] MEDS: EPINEPHrine 2.5 MG in sodium chloride 0.9% 250 ML 0.3 MG IV (23:27)
[2021-09-05] VITALS (93 sets, daily range): BP systolic 61–123; BP diastolic 42–70; PULSE 102–141; RESP 18–23; TEMP 37.1–38.7; O2SAT 90–98
--- NOTE | 2021-09-05 | PC.NURSE ---
Code Status Dr. Gonzales on floor, discussed code status of patient with two daughters. Family verbalized understanding, code status changed from full code to allow natural .
[2021-09-05] MEDS: ipratropium-albuterol 3 mL Neb INHALATION ×6 (00:07→19:47)
[2021-09-05] MEDS: calcium gluconate 0.1 gm/mL 10% SDV 10mL 1 GM IVP (03:25)
[2021-09-05] MEDS: hydrocortisone 100 mg/2 mL SDV 50 MG IVP ×4 (03:25→21:23)
[2021-09-05] MEDS: heparin 5,000 unit/mL INJ 1 mL 5000 UNIT SUBCUT ×3 (03:26→17:15)
[2021-09-05 03:58] LABS: ABG PCO2 45.4 mmHg (35-45); ABG PH Result 7.27 (7.35-7.45); Arterial Blood Gas Hematocrit 39.1 % (37-47); Base Excess ABG -5.9 mmol/L (-2.0-2.0); Blood Gas Allen Test Pos; Blood Gas Sample Site Femoral, left; Blood Gas Sample Type Arterial; HCO3 ABG 20.9 mmol/L (22-26); Oxygen Device VENT; PO2 ABG 87.5 mmHg (80.0-100.0)
[2021-09-05 05:22] LABS: Basophils # 0.1 10^3/uL (0.0-0.1); Basophils % 1.9 %; Eosinophils % 0.4 %; Hemoglobin 13.6 g/dL (11.5-15.3); Lymphocytes # 0.8 10^3/uL (0.8-4.8); Lymphocytes % 16.8 %; Mean Corpuscular HGB Conc 32.4 g/dL (30.0-36.0); Mean Corpuscular Hemoglobin 31.1 pg (28.0-34.0); Mean Corpuscular Volume 96.1 fl (81-99); Monocytes # 0.3 10^3/uL (0.2-0.9); Monocytes % 5.6 %; Neutrophils # 3.42 10^3/uL (1.8-7.7); Nucleated Red Blood Cells % 0 %; Platelet Count 170 10^3/cmm (130-400); Red Blood Count 4.37 10^6/uL (4.1-5.3); Red Cell Distribution Width 12.3 % (12.1-15.1); White Blood Count 4.6 10^3/uL (4.0-10.0)
[2021-09-05 06:06] LABS: Anion Gap 19.7 (5-19); Blood Urea Nitrogen 32 mg/dL (8-23); Calcium 7.3 mg/dL (8.5-10.5); Carbon Dioxide 23 mmol/L (22-29); Chloride 102 mmol/L (98-107); Glomerular Filtration Rate 41.4 mL/min (90-130); Glucose 134 mg/dL (65-115); Magnesium 1.3 mg/dL (1.7-2.3); Osmolality Calculated 301 mOsm/kg (285-295); Potassium 3.7 mmol/L (3.5-5.1); Sodium 141 mmol/L (136-145)
[2021-09-05 06:22] LABS: C Reactive Protein 519.8 mg/L (0.0-4.9); Lactate (Lactic Acid level) 6.9 mmol/L (0.5-2.2)
[2021-09-05 07:02] LABS: Procalcitonin > 100.00 ng/mL (0-0.5)
[2021-09-05] MEDS: piperacillin-tazobactam 3.375 GM in sodium chloride 0.9% (plus) 50 ML IV ×2 (07:09→14:28)
[2021-09-05] MEDS: cefepime 2,000 MG in sodium chloride 0.9% (plus) 50 ML 100 MG IV (07:09)
--- NOTE | 2021-09-05 07:27 | PC.NURSE ---
Spoke with Dr. Bejarano Informed Dr. Bejarano lactate was 6.9, he looked at morning ABG and chest x-ray. Gave over the phone orders for Thiamine 100 mg IVP one time.
--- NOTE | 2021-09-05 07:37 | PC.NURSE ---
Shift Note Frequent safety and comfort rounds continue. Orders and/or nursing care completed as indicated. Patient monitored for response to intervention and treatment(s). Education provided includes code status and patient condition. Patient family verbalized understanding of teaching. Patient remains on the vent, settings are as follows; mode-VC-AC, FiO2-100%, VT-550, rate-20, PEEP-8. No wounds or skin issues noted at this time and patient remains unresponsive to verbal/painful stimuli. Pulses are not palpable bilaterally in the upper or lower extremities. Left radial pulse can be heard with doppler, no other pulses palpable with doppler at this time, physician aware. Will continue to monitor.
[2021-09-05] MEDS: linezolid premix 600 MG/300 ML PREMIX 300 MG IV ×2 (08:01→16:46)
[2021-09-05 08:05] LABS: Slide Review Slide Review Perform
[2021-09-05] MEDS: FUROsemide 10 mg/mL SDV 2mL 20 MG IVP (08:21)
[2021-09-05] MEDS: magnesium sulfate premix 2 GM/50 ML PIGGYBACK IV (08:21)
[2021-09-05] MEDS: pantoprazole 40 mg SDV IVP (08:24)
[2021-09-05] MEDS: sennosides-docusate Tablet 1 TAB PO (08:24)
--- NOTE | 2021-09-05 08:24 | XRR_ITS ---
PROCEDURE INFORMATION: Exam: XR Chest Exam date and time: 09/05/2021 8:24 AM Age: 65 years old Clinical indication: Shortness of breath; Additional info: Left pna TECHNIQUE: Imaging protocol: XR of the chest. Views: 1 view. COMPARISON: CR (CHEST, ) 09/04/2021 6:03 PM FINDINGS: Tubes, catheters and devices: Endotracheal tube is in satisfactory position. Feeding tube is in satisfactory position. Lungs: Persistent near complete opacification of the left hemithorax, with slightly improved aeration in the lower lung. Small left pleural effusion. No pneumothorax. The right lung remains well aerated. Pleural spaces: See Lungs finding. Heart/Mediastinum: Stable cardiomediastinal silhouette. Bones/joints: Unremarkable. XR/XR chest 1V portable [id number] IMPRESSION: Persistent near complete opacification of the left hemithorax with small pleural effusion. Radiation Dose CTDIVOL = (mGy): DLP = (mGy-cm)
[2021-09-05] MEDS: levothyroxine 75 mcg Tablet PO (08:25)
--- NOTE | 2021-09-05 08:45 | P.CONIM_ITS ---
Providers/Reason For Consult Consulting Physician/Specialty*: aleksander levine md/ telenephrology Reason for Consult*: met acidosis, MANINDER Attending Physician: Lan Coleman MD History of Present Illness History of Present Illness Sandra Adams is a 65 year old female admitted on 09/04/21 w/ left sided10 pna. H/O Tob use, COPD/ emphysema, weight loss, vaginal cancer, ( based on meds) depression hypothyroidism, GERD, and hyperlipidemia. Pt was intubated in ER, had a CTA- revealed a multilobar left sided pna , required 2 pressers. She was treated w/ linezolid, zosyn, ivf, steroids, and levophed. She was seen by Dr. Bejarano of the pulmonary/ critical care service. The pt developed a mixed resp and met acidosis- her resp acidosis has improved w/ vent adjustment. Pt is + 3 + liters and now is in oliguric MANINDER and renal is asked to consult. Review of Systems General: Reports: ROS unobtainable due to mental status Meds/Allergies Home Medications and Allergies Home Medications Medication Instructions Recorded Confirmed Last Taken Type albuterol sulfate 2 puff INHALATION Q6H PRN 09/04/21 09/04/21 Unknown History escitalopram oxalate 20 mg PO DAILY 09/04/21 09/04/21 Unknown History famotidine 20 mg PO BID 09/04/21 09/04/21 Unknown History soyzpnbzxfv-kqrhwtyey-ntkfuiyf 1 inh INHALATION BID 09/04/21 09/04/21 Unknown History [Trelegy Ellipta] gabapentin 100 mg PO TID 09/04/21 09/04/21 Unknown History levothyroxine 75 mcg PO DAILY 09/04/21 09/04/21 Unknown History omeprazole 40 mg PO DAILY 09/04/21 09/04/21 Unknown History simvastatin 40 mg PO DAILY 09/04/21 09/04/21 Unknown History Allergies Allergy/AdvReac Type Severity Reaction Status Date / Time codeine Allergy ADR-Nausea Verified 09/04/21 05:12 Current Medications Current Medications Generic Name Dose Route Start Last Admin Trade Name Freq PRN Reason Stop Dose Admin Albuterol/Ipratropium 3 ml 09/04/21 17:00 09/05/21 07:59 Ipratropium-Albuterol 3 Ml Neb INHALATION 3 ml Q4H.RESPIRATORY RUSS Administration Chlorhexidine Gluconate 15 ml 09/04/21 18:00 09/04/21 17:41 Chlorhexidine Gluconate 0.12% Btl 473 Ml MUCOUS MEM Not Given BID RUSS Heparin Sodium (Porcine) 5,000 unit 09/04/21 17:15 09/05/21 08:24 Heparin 5,000 Unit/Ml Inj 1 Ml SUBCUT 5,000 unit Q8H RUSS Administration Hydrocortisone Sodium Succinate 50 mg 09/04/21 15:30 09/05/21 03:25 Hydrocortisone 100 Mg/2 Ml Sdv IVP 50 mg Q6H RUSS Administration Propofol 1,000 mg in 100 mls @ 0 mls/hr 09/04/21 08:45 09/04/21 09:40 Diprivan IV 0 mcg/kg/min .Q0M RUSS 0 mls/hr Titration Protocol Per Protocol Norepinephrine Bitartrate 4 mg 254 mls @ 0 mls/hr 09/04/21 08:45 09/05/21 07:41 / Dextrose IV 20 mcg/min .Q0M RUSS 76.2 mls/hr Administration Protocol Per Protocol Fentanyl 1,000 mcg/ Sodium 100 mls @ 0 mls/hr 09/04/21 08:45 09/05/21 02:00 Chloride IV 50 mcg/hr .Q0M RUSS 5 mls/hr Titration Protocol Per Protocol Piperacillin Sod/Tazobactam 50 mls @ 12.5 mls/hr 09/04/21 13:30 09/05/21 07:09 Sod 3.375 gm/ Sodium Chloride IV 12.5 mls/hr Q8H RUSS Administration Midazolam HCl 100 mg/ Sodium 100 mls @ 0 mls/hr 09/04/21 12:45 09/04/21 23:25 Chloride IV 1 mg/hr .Q0M RUSS 1 mls/hr Administration Protocol Per Protocol Vasopressin 40 unit/ Sodium 40 mls @ 0.03 mls/min 09/04/21 15:30 09/05/21 07 :41 Chloride IV 0.04 mls/min CONT RUSS Administration Sodium Bicarbonate 300 meq/ N/ 300 mls @ 15 mls/hr 09/04/21 15:45 09/04/21 16:00 A IV 15 mls/hr CONT URSS Administration Linezolid 600 mg in 300 mls @ 300 mls/hr 09/04/21 16:45 09/05/21 08:01 Zyvox Premix IV 300 mls/hr Q12H RUSS Administration Protocol Cefepime HCl 2,000 mg/ Sodium 50 mls @ 100 mls/hr 09/04/21 17:15 09/05/21 08:00 Chloride IV Infused Q12H RUSS Infusion Protocol Epinephrine HCl 2.5 mg/ Sodium 252.5 mls @ 0 mls/hr 09/04/21 23:15 09/05/21 02:00 Chloride IV 0 mcg/min .Q0M RUSS 0 mls/hr Titration Protocol Per Protocol Magnesium Sulfate 2 gm in 50 mls @ 50 mls/hr 09/05/21 08:15 09/05/21 08:21 Magnesium Sulfate Premix IV 09/05/21 09:14 50 mls/hr ONCE ONE Administration Levothyroxine Sodium 75 mcg 09/05/21 09:00 09/05/21 08:25 Levothyroxine 75 Mcg Tablet PO 75 mcg DAILY RUSS Administration Pantoprazole Sodium 40 mg 09/05/21 09:00 09/05/21 08:24 Pantoprazole 40 Mg Sdv IVP 40 mg DAILY RUSS Administration Senna/Docusate Sodium 1 tab 09/04/21 11:52 09/05/21 08:24 Sennosides-Docusate Tablet PO 1 tab DAILY RUSS Administration PFSH Acute PFSH: Medical History COPD (chronic obstructive pulmonary disease) Vaginal cancer Surgical History H/O colposcopy with cervical biopsy Hx of cholecystectomy Family History Denies family history of Clotting disorder Chronic kidney disease (CKD) Social History Smoking and tobacco status: current every day smoker cigarettes [ Other cigarette details: Smokes 1 pack/day for last 20 to 25 years ] Alcohol intake: never Substance/Drug Use: never Household members: significant other Housing: House Vitals/I&O/Wt Last Vital Signs Temp 99.0 F 09/05/21 04:00 Pulse 125 H 09/05/21 08:07 Resp 22 H 09/05/21 08:08 BP 94/55 09/04/21 18:00 Pulse Ox 94 09/05/21 08:08 09/04/21 09/05/21 09/05/21 22:59 06:59 14:59 Intake Total 1879.917 / 3089.537 664.968 / 3754.505 80.44 / 80.44 Output Total 325 / 325 350 / 675 Balance 1554.917 / 2764.537 314.968 / 3079.505 80.44 / 80.44 Weight last 48 hrs Weight 46.493 kg Weight 43.998 kg Physical Exam Narrative: EXAM NARRATIVE: intubated, sedated, vasopressin vent fio2=85%, PEEP 8, TV 550 heent- nc/at, eomi, anicteric neck supple lungs poor air movement on left heart tachy, + s1, s2, +MICHELLE abd soft, +BS, distended ext no edema poor DP and PT pulses Urinary Catheter Management^: Valenzuela: Cath Placed During This Visit: yes Reason for Continuing Indwelling Catheter: Accurate Measurement of Urinary Output in Critically Ill Patients Urinary Catheter Date of Insertion: 09/04/21 Urinary Catheter Time of Insertion: 11:00 Data Micro: Micro: Microbiology 09/04/21 18:12 Legionella Urinary Antigen - Final Urine Catheterize d 09/04/21 05:30 Blood Culture - Pr eliminary Blood NEGATIVE TO YOLY E 09/04/21 05:30 Blood Culture - Pr eliminary Blood NEGATIVE TO YOLY E 09/04/21 09:15 Gram Stain - Final Sputum - Endotrac heal Tube Aspirate A&P Additional A&P Information 65 yr old female w/ severe Left sided pna. H/O hypothyroidism, COPD/ emphysema. 1. MANINDER- from septic shock and CTA on admission -low ur na noted -check ua and renal us -monitor ck, repeat abg and chemistries -monitor in and out -dose meds for GFR <10 2. Resp acidosis improving w/ vent 3. met acidosis -lactic acidosis from sepsis -w/ MANINDER- kidneys can not compensate -eval and treat lactic acidosis per medicine- monitor extremities and abd -on abx for pna -presser requirements are improving discussed w/ Dr. Bejarano and Dr. Jared in detail seen and examined w/ RN- telehealth visit time spent 55 minutes Consult Attestations Medical Necessity Statement: MANINDER, VDRF, pna Time Spent in Patient Care: Greater than 35 minutes (>than 50% of time spent in counselling and/or direct pt care on unit) . Procedures Arterial Line Size (Gauge): 20 Coding Level of Care Code Acute Slide Fastener Repairer for Lucy Turner
--- NOTE | 2021-09-05 09:09 | USCV_ITS ---
Sandra Adams Age: 65 Gender: F : 1955 Exam Date: 09/05/2021 09:44 Ordering Phys: Lan Coleman MD Technologist: Exam Location: [facility] – [place] Indication: COLD HAND AND COLD FEET RIGHT LEFT Brachial 65.00 mmHg Brachial 65.00 mmHg Pressure (mmHg) Waveform Pressure (mmHg) Waveform 65.00 CARDIOLOGY PHYSICIAN 65.00 65.00 DPA 65.00 1.00 Ankle/Brachial Index 1.00 FINDINGS Normal resting ABIs bilaterally Markedly diminished systolic blood pressures CONCLUSIONS Normal resting ABIs bilaterally. Severe hypotension is noted Dr Bartolo Stokes MD [facility] (Electronically Signed) Final Date: 06 September 2021 07:33 S
[2021-09-05 09:43] LABS: Lipase 18 U/L (13-60)
--- NOTE | 2021-09-05 09:45 | PC.CHAP ---
Pastoral Care Encounter/Spiritual Assessment Type of Contact [] Declined logistical engineer visit [] Patient/Family/Request visit [] Outpatient visit [] Follow-up visit [] Physician referral [] Code/Alert [x] Routine visit [] Staff referral [] Actively dying [] Patient sleeping [] Family support [] [] Out of room [] Palliative care [] [] Receiving care in room [] Pre-surgical visit [] Trauma [] Long length of stay [x] ICU visit [] Other: Relational/Emotional Strength [] Patient feels connected with others/family/visitors/staff [] Distress [] Loneliness/isolation [] Abandonment Spirituality of Patient [] Person of [place] [] Attends Denominational of their [place] [] Believes in Prayer [] Reads Bible or Yazidism materials [] There are Spiritual issues to be addressed Trucking Manager Interventions [x] Prayer [] Active listening [] Non-anxious presence [] Spiritual/emotional support [] Crisis/trauma care [] Spiritual counseling [] Bereavement support [] Provided bereavement packet [] Provided Bible/devotional materials [] Provided toy/stuffed animal, coloring book to patient or family member [] Provided Communion [] Anointing/[place] [] Salvation [x] Completed spiritual assessment [] Other: Impact on Illness or Injury [] Angry [] Fearful [] Anxious [] Often cries [] Exhaustion [] Unable to work [] Unable to attend yarsanism [] Unable to walk/stand [] Unable to read [] Unable to drive [] Unable to eat/drink [] Unable to sleep [] Unable to be with family [] Patient intubated [] Other: Summary Time spent with patient
[2021-09-05] MEDS: phenylephrine inj 25 MG in sodium chloride 0.9% 250 ML 153.02 MG IV (09:46)
[2021-09-05] MEDS: potassium chloride ER 20 mEq Tablet PO (09:48)
[2021-09-05] MEDS: lactated ringers 500 ML 999 ML IV (09:51)
[2021-09-05 10:16] LABS: Hepatitis C Virus Antibody Non-Reactive (Nonreactive)
[2021-09-05 11:17] LABS: ABG PCO2 36.7 mmHg (35-45); ABG PH Result 7.42 (7.35-7.45); Alveolar-Arterial Oxygen Gradi 63.3 mmHg (5-10); Arterial Blood Gas Hematocrit 34.9 % (37-47); Base Excess ABG -0.6 mmol/L (-2.0-2.0); Blood Gas Allen Test Pos; Blood Gas Operator Identificat BD; Blood Gas Sample Site ALINE; Blood Gas Sample Type Arterial; Blood Gas Tidal Volume 0.55; Carboxyhemoglobin 0.3 %THgb (0.4-20.1); HCO3 ABG 23.6 mmol/L (22-26); HGB O2 Sat 95.7 % (95-100); Ionized Calcium Level - ABG 0.8 mmol/L (1.1-1.4); Oxygen Device VENT; PO2 ABG 76.6 mmHg (80.0-100.0); Potassium Level - ABG 3.1 mmol/L (3.5-5.0); Total Hemoglobin 11.4 g/dL (12-16)
[2021-09-05 11:37] LABS: Glucose Point of Care 123 mg/dL (70-110)
--- NOTE | 2021-09-05 11:52 | USCV_ITS ---
Sandra Adams Age: 65 Gender: F : 1955 Exam Date: 09/05/2021 09:56 Ordering Phys: Lan Coleman MD Technologist: Exam Location: [facility] [place] Indication: CHF BP: 65 / 46 HR: 123 Rhythm: Sinus Technical Quality: Adequate MEASUREMENTS (Male / Female) Normal Values 2D ECHO LV Diastolic Diameter PLAX 2.4 cm 4.2 - 5.9 / 3.9 - 5.3 cm LV Systolic Diameter PLAX 2.1 cm IVS Diastolic Thickness 0.7 cm 0.6 - 1.0 / 0.6 - 0.9 cm IVS Systolic Thickness 0.9 cm LVPW Diastolic Thickness 0.7 cm 0.6 - 1.0 / 0.6 - 0.9 cm LVPW Systolic Thickness 0.6 cm LV Ejection Fraction 2D Teich 28.0 % LV Ejection Fraction MOD 2C 40.0 % LV Ejection Fraction 2C AL 41.1 % FINDINGS Left Ventricle Normal left ventricular cavity size. Severely decreased left ventricular systolic function. Left ventricular ejection fraction is estimated at 25-30 %. Severe global hypokinesis. Right Ventricle Normal right ventricular size and systolic function. Right Atrium Normal right atrial size. Left Atrium Mildly increased left atrial size. Mitral Valve Mildly thickened mitral valve. Aortic Valve Aortic valve not well visualized. Tricuspid Valve Tricuspid valve not well visualized. Pulmonic Valve Pulmonic valve not well visualized. Pericardium No pericardial effusion. Aorta Aorta not well visualized. CONCLUSIONS 1. This is a limited 2D echo only. 2. Normal left ventricular cavity size. Severely decreased left ventricular systolic function. Left ventricular ejection fraction is estimated at 25-30 %. Severe global hypokinesis. 3. Thickened mitral valve. 4. Interpretation limited by tachycardia. Once heart rate is better controlled complete echocardiogram is recommended. 5. No prior studies to compare. Sweta Moreno MD (Electronically Signed) Final Date: 05 September 2021 18:41 S
--- NOTE | 2021-09-05 13:56 | P.PN_ITS ---
Subjective Subjective: Interval history: Overnight patient map has stayed between 60-65 Positive 4 liter fluid balance She has stayed on Levophed 20, vasopressin at 0.04, Persistent sinus tachycardia in 120s Concentrated urine color Hypocalcemia Worsening CRP, procalcitonin Creatinine worsening Mottling around knees, digits and toes, cold extremities requested arterial duplex study this morning Vasopressors: This morning I requested phenylephrine as patient's heart rate was fluctuating between 1 20-1 35, On telemetry it looks sinus tachycardia did not see atrial flutter or fibrillation however I was notified around 9 AM that ejection fraction is 20 to 30%, called ICU nurse to discontinue phenylephrine, Dr. Bejarano also got back to me to avoid phenylephrine and use epinephrine with vasopressin Consulted psychological science professor because of positive fluid balance Bicarb drip discontinued, acidosis has improved however lactic acid is worsening Patient has developed septic cardiomyopathy due to severe acidosis I did review records from [facility] as well, there was some concern regarding malignancy for right apical lung opacity however PET scan did not show any active metabolic activity Called her daughter Geraldine to update her as well Coordinated care with Dr. Bejarano, called on-call psychological science professor Vitals/I&O/Wt Last Vital Signs Temp 99.0 F 09/05/21 10:00 Pulse 102 H 09/05/21 12:00 Resp 22 H 09/05/21 12:00 BP 94/55 09/05/21 12:00 Pulse Ox 96 09/05/21 12:00 09/04/21 09/05/21 09/05/21 22:59 06:59 14:59 Intake Total 1879.917 / 3089.537 664.968 / 3754.505 980.44 / 980.44 Output Total 325 / 325 350 / 675 Balance 1554.917 / 2764.537 314.968 / 3079.505 980.44 / 980.44 Weight last 48 hrs Weight 46.493 kg Weight 43.998 kg Physical Exam Narrative: EXAM NARRATIVE: Patient is intubated and sedated Mottling noticed around right hand, bilateral feet Cold extremities, however legs are warm to touch Concentrated yellow urine color Neuro exam limited Bilateral assisted breath sounds PEEP 8, FiO2 85% Versed running at 2, fentanyl at 100, vasopressin 0.04 levo at 20 Sinus tachycardia heart rate fluctuating between 1 29-1 35 MAP 61-65mmhg Afebrile Urinary Catheter Management^: Valenzuela: Cath Placed During This Visit: yes Reason for Continuing Indwelling Catheter: Accurate Measurement of Urinary Output in Critically Ill Patients Urinary Catheter Date of Insertion: 09/04/21 Urinary Catheter Time of Insertion: 11:00 Data : 09/05/21 04:25 09/05/21 13:35 Micro: Microbiology 09/04/21 14:35 Gram Stain - Final Lung Left Upper Lobe Bronchial Washings Culture - Preliminary Staphylococcus aureus 09/04/21 09:15 Gram Stain - Final Sputum - Endotracheal Tube Aspirate Sputum Culture - Preliminary Staphylococcus aureus 09/04/21 18:12 Bacterial Antigens - Final Urine,Voided 09/04/21 18:12 Legionella Urinary Antigen - Final Urine Catheterized 09/04/21 05:30 Blood Culture - Preliminary Blood NEGATIVE TO DATE 09/04/21 05:30 Blood Culture - Preliminary Blood NEGATIVE TO DATE A&P Assessment and plan (1) Metabolic acidosis: Status: Acute (2) Acute kidney injury: Status: Acute (3) COPD (chronic obstructive pulmonary disease): Status: Acute (4) Acute respiratory failure with hypoxia and hypercapnia: Status: Acute (5) Septic shock: Status: Acute (6) Malnourished: Status: Acute (7) Cachexia: Status: Acute (8) Sepsis: Status: Acute (9) Community acquired pneumonia: Status: Acute Qualifiers: Laterality: left Lung location: upper lobe of lung Qualified Code(s): J18.9 - Pneumonia, unspecified organism (10) Respiratory failure: Status: Acute Qualifiers: Chronicity: acute Respiratory failure complication: hypoxia and hypercapnia Qualified Code(s): J96.01 - Acute respiratory failure with hypoxia; J96.02 - Acute respiratory failure with hypercapnia (11) Hypocalcemia: Status: Acute (12) Hypomagnesemia: Status: Acute Additional A&P Information Respiratory failure requiring mechanical ventilation Patient failed BiPAP therapy currently intubated FiO2 85% PEEP 8 Hypoxia and hypercapnia has improved with improvement in minute ventilation Records from [facility] reviewed, PET scan did not show increased metabolic activity for right apical pulmonary opacity Management as per auto body repair estimator Dr. Bejarano s/p broch on 09/04 w BAL, Sputum + MRSA Septic shock Was febrile overnight Multilobar pneumonia left-sided Sputum culture growing MRSA Currently requiring epinephrine and vasopressin IV steroids as well Map has stayed between 61-65 overnight, She was febrile overnight as well Patient is suffering from septic cardiomyopathy EF 20 to 30%, sinus tachycardia persistent tachycardia since last 24 hours, likely physiologic response to hypotension, considering low EF avoid phenylephrine, will use epinephrine and vasopressin for now, will touch base with physician/ophthalmologist before changing vasopressor At the time of admission 09/04 I was able to place triple-lumen catheter in right femoral vein, right radial artery was placed as well, arterial waveform was not adequate requested Dr. Bejarano who placed left femoral art line Mixed respiratory and metabolic acidosis Acidemia is worsening, persistent lactic acidemia, however bicarb has improved with use of concentrated bicarb, bicarb drip on hold today Patient is positive for liter net fluid balance since admission, requested nephr ology consult, given low-dose of Lasix today 20 mg IV push Hypocalcemia secondary to use of bicarb Calcium repleted 1 g was given yesterday, and second dose was given today Albumin 3.1 dec to 2.1 Hypokalemia: Repleted hypomagnesemia: Repleted Acute tubular necrosis with oliguria Secondary to hypotension, use of contrast for CTA, Urine studies were done at the time of admission, appreciate nephro recommendations Creatinine is worsening +4 L fluid balance We will follow up with nephro recommendations Central line: Nasogastric tube, intubation, left femoral arterial line, right femoral triple-lumen catheter, Valenzuela catheter on 09/04 Tube feeding on hold Guarded prognosis Pt was made DNR by the family yestarday night. DVT PPX; on heparin avoid lovenox Attestations Medical Necessity Statement*: ICU CARE , high riskfor Cardiac arrest Time Spent in Patient Care: Greater than 35 minutes Procedures Arterial Line Size (Gauge): 20 Coding Level of Care Code Acute Integration Consultant for Chg Fwd Diagnoses Metabolic acidosis E87.2 Acute kidney injury N17.9 COPD (chronic obstructive pulmonary disease) J44.9 Acute respiratory failure with hypoxia and hypercapnia J96.01; J96.02 Septic shock A41.9; R65.21 Malnourished E46 Cachexia R64 Sepsis A41.9 Community acquired pneumonia J18.9 Laterality: left Lung location: upper lobe of lung Respiratory failure J96.01; J96.02 Chronicity: acute Respiratory failure complication: hypoxia and hypercapnia Hypocalcemia E83.51 Hypomagnesemia E83.42
[2021-09-05 14:01] LABS: Alanine Aminotransferase 66 U/L (0-33); Albumin Level 2.1 g/dL (3.5-5.2); Alkaline Phosphatase 42 IU/L (35-105); Anion Gap 22.7 (5-19); Aspartate Amino Transferase 160 U/L (0-32); Blood Urea Nitrogen 40 mg/dL (8-23); Calcium 6.8 mg/dL (8.5-10.5); Carbon Dioxide 25 mmol/L (22-29); Chloride 98 mmol/L (98-107); Globulin 2.1 g/dL (1.3-4.6); Glomerular Filtration Rate 21.4 mL/min (90-130); Glucose 120 mg/dL (65-115); Osmolality Calculated 305 mOsm/kg (285-295); Potassium 3.7 mmol/L (3.5-5.1); Sodium 142 mmol/L (136-145); Total Bilirubin 0.5 mg/dL (0.15-1.2); Total Protein 4.2 g/dL (6.6-8.7)
[2021-09-05 14:29] LABS: Creatine Phosphokinase 2851 U/L (26-192)
[2021-09-05 16:52] LABS: Quest SARS-CoV-2 RNA NOT DETECTED (NOT DETECTED)
[2021-09-05] MEDS: EPINEPHrine 2.5 MG in sodium chloride 0.9% 250 ML 0.3 MG IV (17:06)
[2021-09-05 17:21] LABS: Lactate (Lactic Acid level) 7.2 mmol/L (0.5-2.2)
--- NOTE | 2021-09-05 18:10 | PC.NURSE ---
Shift Note: Frequent safety and comfort rounds continue. Orders and/or nursing care completed as indicated. Patient monitored for response to intervention and treatment(s). Education provided includes medication education upon administration,current orders, and plan of care, patient is intubated and unable to respond to teachings. Family updated at bedside of current plan and condition. Family plans to call in the morning for updates. Family verbalizes understanding. Current drips and rates: Vasopressin 2.4ml/hr Levophed 45ml/hr Fentanyl 10ml/hr Versed 2ml/hr Epinephrine 19.5 ml/hr Patient is primarily right side lying per providers request.
--- NOTE | 2021-09-05 19:46 | PM.PN ---
Subjective Subjective: Interval history: The patient was seen and examined multiple times throughout the day. There is the endotracheal aspirate and BAL lavage grew staph aureus. The patient is in profound septic shock with sepsis induced cardiomyopathy. His ejection fraction was approximately 20%. Currently she is on epinephrine, Levophed and vasopressin. Bedside ultrasound reveals improved myocardial contractility with addition of epinephrine. The patient is broadly covered with linezolid and and cefepime. The metabolic and respiratory acidosis has resolved. The patient is off of bicarb drip. The lactate level is stable around 7. Medications: Reviewed: Yes Vitals/I&O/Wt Last Vital Signs Temp 99.0 F 09/05/21 10:00 Pulse 118 H 09/05/21 18:00 Resp 22 H 09/05/21 18:00 BP 101/70 09/05/21 18:00 Pulse Ox 93 09/05/21 18:00 09/05/21 09/05/21 09/05/21 06:59 14:59 22:59 Intake Total 664.968 / 3754.505 1234.44 / 1234.44 301.895 / 1536.335 Output Total 350 / 675 250 / 250 Balance 314.968 / 3079.505 1234.44 / 1234.44 51.895 / 1286.335 Weight last 48 hrs Weight 102 lb 8 oz Weight 97 lb Physical Exam Narrative: EXAM NARRATIVE: General: The patient is intubated and sedated Neck: No JVD Respiratory: Auscultation: Diffuse crackles at left lung, reduced breath sound in the right lung, no wheezing or rhonchi Cardiovascular: Tachycardia, regular rhythm, S1-S2 present, distant heart sound, no murmur, mild peripheral edema. Abdomen: Soft, nondistended, positive bowel sound Skin: No rash Neuro: Unable to assess Urinary Catheter Management^: Valenzuela: Cath Placed During This Visit: yes Reason for Continuing Indwelling Catheter: Accurate Measurement of Urinary Output in Critically Ill Patients Urinary Catheter Date of Insertion: 09/04/21 Urinary Catheter Time of Insertion: 11:00 Data : 09/05/21 04:25 09/05/21 13:35 Micro: Microbiology 09/04/21 20:15 MRSA Culture - Final Nose 09/04/21 14:35 Gram Stain - Final Lung Left Upper Lobe Bronchial Washings Culture - Preliminary Staphylococcus aureus 09/04/21 09:15 Gram Stain - Final Sputum - Endotracheal Tube Aspirate Sputum Culture - Preliminary Staphylococcus aureus 09/04/21 18:12 Bacterial Antigens - Final Urine,Voided 09/04/21 18:12 Legionella Urinary Antigen - Final Urine Catheterized 09/04/21 05:30 Blood Culture - Preliminary Blood NEGATIVE TO DATE 09/04/21 05:30 Blood Culture - Preliminary Blood NEGATIVE TO DATE Attestation for Other Data: I personally reviewed and interpreted the following: Other data: I have reviewed the patient's laboratory, microbiologic and radiologic data. The endotracheal aspirate and BAL culture is positive for staph aureus. The BUN and creatinine is going up. The procalcitonin level is more than 100 Chest x-ray this morning revealed multilobar infiltrate in the left lung. The left lower lobe atelectasis was better. A&P Assessment and plan (1) Septic shock: The patient is in septic shock secondary to multilobar pneumonia. Pneumonia secondary to staph aureus. Unclear if it is MSSA or MRSA. The patient has also developed septic cardiomyopathy with an ejection fraction of approximately 20%. For now, the patient will be on epinephrine, Levophed and vasopressin. We will titrate down the Levophed as the blood pressure improves however I will continue to have some epinephrine for inotropic effect. The patient is on hydrocortisone. Status: Acute (2) Community acquired pneumonia: The patient has multilobar pneumonia involving the left upper and lower lobe. We will continue with linezolid. Renally dosed cefepime. There is no indication for a second antipseudomonal coverage in the absence of Pseudomonas. Status: Acute Qualifiers: Laterality: left Lung location: upper lobe of lung Qualified Code(s): J18.9 - Pneumonia, unspecified organism (3) Acute respiratory failure with hypoxia and hypercapnia: The hypoxia is getting better. The patient is currently on 75% oxygen. The hypercapnia has completely resolved. The blood gas this afternoon revealed no acidosis. I expect the hypoxia to continue to get better. Status: Acute (4) COPD (chronic obstructive pulmonary disease): We will continue with DuoNeb. Status: Acute (5) Acute kidney injury: Her primary challenge at this point is the renal function. I am hoping that the patient will recover her renal function eventually. She will likely need CRRT to prevent hypervolemia. Status: Acute (6) Metabolic acidosis: The patient has elevated lactate level but no acidosis at this time. We will continue with supportive therapy. Status: Acute Attestations Medical Necessity Statement*: Will defer to the primary team Procedures Arterial Line Size (Gauge): 20 Coding Level of Care Code Acute Auxiliary Engineer for Chg Fwd Diagnoses Septic shock A41.9; R65.21 Community acquired pneumonia J18.9 Laterality: left Lung location: upper lobe of lung Acute respiratory failure with hypoxia and hypercapnia J96.01; J96.02 COPD (chronic obstructive pulmonary disease) J44.9 Acute kidney injury N17.9 Metabolic acidosis E87.2 Time Spent (min) 58
[2021-09-05 20:24] LABS: Glucose Point of Care 74 mg/dL (70-110)
[2021-09-05 20:40] LABS: ABG PH Result 7.31 (7.35-7.45); Base Excess ABG -2.1 mmol/L (-2.0-2.0); Blood Gas Sample Type Arterial; Blood Gas Tidal Volume 0.45; HCO3 ABG 24.6 mmol/L (22-26); Oxygen Device VENT; PO2 ABG 56.7 mmHg (80.0-100.0)
[2021-09-05 20:54] LABS: Creatine Phosphokinase 4120 U/L (26-192)
--- NOTE | 2021-09-05 21:11 | PM.PN ---
Subjective Subjective: Interval history: I was called to evaluate the patient after her blood pressure suddenly dropped to 60s. Her map was in the 30s. The patient at that point was on 20 mics of Levophed, vasopressin and 2.3 mcg/min of epinephrine. An arterial blood gas was obtained did not reveal any significant evidence of hypercapnia or acidosis. A bedside ultrasound did not reveal any pericardial effusion or any evidence of pulmonary embolism. I am going to try 2 mg/kg of methylene blue. If this is unsuccessful, I will talk to family regarding focusing on making her comfortable. Vitals/I&O/Wt Last Vital Signs Temp 99.0 F 09/05/21 10:00 Pulse 141 H 09/05/21 20:15 Resp 22 H 09/05/21 19:51 BP 75/43 09/05/21 20:15 Pulse Ox 92 09/05/21 20:15 09/05/21 09/05/21 09/05/21 06:59 14:59 22:59 Intake Total 664.968 / 3754.505 1234.44 / 1234.44 585.788 / 1820.228 Output Total 350 / 675 250 / 250 Balance 314.968 / 3079.505 1234.44 / 1234.44 335.788 / 1570.228 Weight last 48 hrs Weight 102 lb 8 oz Weight 97 lb Physical Exam Urinary Catheter Management^: Valenzuela: Cath Placed During This Visit: yes Reason for Continuing Indwelling Catheter: Accurate Measurement of Urinary Output in Critically Ill Patients Urinary Catheter Date of Insertion: 09/04/21 Urinary Catheter Time of Insertion: 11:00 Data : 09/05/21 04:25 09/05/21 13:35 Micro: Microbiology 09/04/21 20:15 MRSA Culture - Final Nose 09/04/21 14:35 Gram Stain - Final Lung Left Upper Lobe Bronchial Washings Culture - Preliminary Staphylococcus aureus 09/04/21 09:15 Gram Stain - Final Sputum - Endotracheal Tube Aspirate Sputum Culture - Preliminary Staphylococcus aureus 09/04/21 18:12 Bacterial Antigens - Final Urine,Voided 09/04/21 18:12 Legionella Urinary Antigen - Final Urine Catheterized 09/04/21 05:30 Blood Culture - Preliminary Blood NEGATIVE TO DATE 09/04/21 05:30 Blood Culture - Preliminary Blood NEGATIVE TO DATE Attestations Medical Necessity Statement*: Will defer to the primary team Procedures Arterial Line Size (Gauge): 20 Coding Level of Care Code Acute Pneumatic Hoist Operator for Lucy Turner
--- NOTE | 2021-09-05 21:30 | PC.NURSE ---
Spoke with Family Spoke with daughter Geraldine on the phone, informed her that patients blood pressure had suddenly dropped despite being on Levophed, Epi, and Vasopressin. Informed her that prognosis not looking well, family verbalized understanding and said they will come to hospital to be bedside.
--- NOTE | 2021-09-05 23:40 | PC.NURSE ---
Patient Patient continued to deteriorate, prognosis not good. spoke with family about moving to comfort care. Patient at 2[address] this evening. Upon patient passing Dr. Bejarano was notified. Called family to notify of patient passing, two daughters still plan on coming in to see patient. Upon family arrival to ICU, ivania services were offered to family, they accepted. call center supervisor ivania was notified of family requests. Two daughters at bedside, informed nurse they would contact patient brother and life partner about patient condition.
--- NOTE | 2021-09-05 23:55 | PC.NURSE ---
MTS made contact with this nurse to decline donation. Waiting [facility] before body release.
--- NOTE | 2021-09-06 00:32 | PC.NURSE ---
Saving Site Saving site called this nurse, declined eye donation and released body. [facility] contacted about coming to pickup patient.
--- NOTE | 2021-09-06 02:20 | PC.NURSE ---
Home home picked up patient, all patient belongings including; dentures, purse, and clothing sent with patient. Family notified.
--- NOTE | 2021-09-06 02:48 | PC.NURSE ---
Addendum entered by Mayra Matias RN 09/06/21 03:12: witnessed versed waste. Original Note: Waste Versed Wasted 77.567 mls of Versed with witness SONIA Nunez.
--- NOTE | 2021-09-06 07:07 | PM.DDS ---
Discharge Providers DDS Date of Admission: 09/04/21 11:52 Date Summary Completed: 09/06/21 Attending Provider at Admission: Lan Coleman MD Time of : 21:50 Attending Provider at Discharge: Lan Coleman MD DS Diagnoses Hospital Diagnoses (1) Septic shock: (2) Community acquired pneumonia: Qualifiers: Laterality: left Lung location: upper lobe of lung Qualified Code(s): J18.9 - Pneumonia, unspecified organism (3) Acute respiratory failure with hypoxia and hypercapnia: (4) COPD (chronic obstructive pulmonary disease): (5) Acute kidney injury: (6) Metabolic acidosis: Reason for Visit Reason for Visit: SOB/ CHEST PAIN Summary Date and Time of Date of : 09/05/21 Time of : 21:50 Summary Summary: Patient was admitted for COPD exacerbation, acute hypoxic hypercapnic restaurant failure related to left-sided community-acquired pneumonia, she was intubated in the ER for worsening ABG on BiPAP, she was intubated by the ER physician, I was able to put right femoral triple-lumen catheter, Dr. Bejarano was consulted in the ICU same day we started her on vasopressors, bicarb drip, IV fluids, replenish her electrolytes such as potassium and calcium, her map stayed between 61-65, she was on 3 vasopressors in next 24 hours, bronchoscopy was done on day of admission as well, sputum culture grew MRSA, patient was showing signs of hypoperfusion with mottling of extremities, duplex study did not show any acute ischemic occlusion, CTA ruled out PE, her bicarb did improve acidosis improved however lactic acidemia was getting worse, nephrology was consulted who was planning for CRRT but unfortunately patient got worse overnight while us customs and border officer Dr. Bejarano was at the bedside, please read his last note for further details, family was present and made aware from day 1 that patient was sick and had poor prognosis. Family made her comfort care and patient on 09/05 at 2150 secondary to septic shock multiorgan failure ATN MRSA pneumonia and metabolic acidosis. 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.(She was on levo, epi and vasopressin) Additional Data Confirmation of as documented by pronouncing clinician: no pulse Family: at bedside and contacted Additional persons at bedside: nursing staff and director of industrial relations Attending/PCP notified?: I am attending Was code activated?: No Autopsy requested?: No Advance directives?: No Hospice patient?: Yes Discharge Plan Discharge Patient Disposition: At Medical Facility Condition: Serious Prescriptions: No Action omeprazole 40 mg capsule,delayed release(DR/EC) 40 mg PO DAILY RF: 0 simvastatin 40 mg tablet 40 mg PO DAILY RF: 0 levothyroxine 75 mcg tablet 75 mcg PO DAILY RF: 0 famotidine 20 mg tablet 20 mg PO BID RF: 0 gabapentin 100 mg capsule 100 mg PO TID RF: 0 albuterol sulfate 90 mcg/actuation HFA aerosol inhaler 2 puff INHALATION Q6H PRN (Reason: Shortness Of Breath) RF: 0 escitalopram oxalate 20 mg tablet 20 mg PO DAILY RF: 0 Trelegy Ellipta 100-62.5-25 mcg blister with device 1 inh INHALATION BID RF: 0 DS Attestations Time Spent in /Discharge Care*: less than 30 min Quality - AMI: AMI present?: No Quality - Stroke: CVA present?: No Symptom Onset Unknown: No Quality - VTE: VTE present?: No Deep Vein Thrombosis/Pulmonary Embolism Present on Admission: No Coding Level of Care Code Acute Process Specialist for [facility] Fwd Diagnoses Septic shock A41.9; R65.21 Community acquired pneumonia J18.9 Laterality: left Lung location: upper lobe of lung Acute respiratory failure with hypoxia and hypercapnia J96.01; J96.02 COPD (chronic obstructive pulmonary disease) J44.9 Acute kidney injury N17.9 Metabolic acidosis E87.2
== END 2021-09-05 21:50 | disposition expired | DRG 871 ==
LOC: ER 07:21 → ICU 09:49
PROVIDERS: Emergency Medicine; Internal Medicine; Internal Medicine Critical Care Medicine; Internal Medicine Nephrology; Admitting Provider Internal Medicine; Emergency Provider Emergency Medicine; Visit Provider Internal Medicine
DX: A41.9 Sepsis, unspecified organism (principal); R65.21 Severe sepsis with septic shock; J15.212 Pneumonia due to Methicillin resistant Staphylococcus aureus; J96.02 Acute respiratory failure with hypercapnia; J96.01 Acute respiratory failure with hypoxia; N17.0 Acute kidney failure with tubular necrosis; E87.4 Mixed disorder of acid-base balance; I42.9 Cardiomyopathy, unspecified; E46 Unspecified protein-calorie malnutrition; F17.210 Nicotine dependence, cigarettes, uncomplicated; J43.9 Emphysema, unspecified; C52 Malignant neoplasm of vagina; E03.9 Hypothyroidism, unspecified; F32.A Depression, unspecified; K21.9 Gastro-esophageal reflux disease without esophagitis; E78.5 Hyperlipidemia, unspecified; I95.9 Hypotension, unspecified; Z68.20 Body mass index [BMI] 20.0-20.9, adult; Z51.5 Encounter for palliative care; E83.42 Hypomagnesemia; E83.51 Hypocalcemia
CPT/HCPCS: 36415; 36416; 36600; 51702; 71045; 71275; 80048; 80051; 80053; 82330; 82436; 82533; 82550; 82570; 82803; 82805; 82962; 83036; 83605; 83690; 83735; 83880; 84133; 84145; 84300; 84443; 84484; 85007; 85025; 85378; 85610; 86140; 86403; 86803; 87040; 87070; 87077; 87186; 87205; 87426; 87449; 87635; 87641; 87804; 90935; 93005; 93308; 93922; 94002; 94003; 94640; 94660; 94799; 96365; 96366; 96367; 96368; 96372; 96375; 99291; 99292; C1751; C9113; J0171; J0456; J0610; J0692; J0696; J1644; J1650; J1720; J1940; J2020; J2250; J2370; J2543; J2704; J2920; J3010; J3411; J3475; J3480; J3490; J7030; J7040; J7050; Q3014; Q9967; Q9968